=== PATIENT | male | born 1950 | race Caucasian/White ===

== ENCOUNTER 2017-03-27 16:49 | Inpatient (IN) | payer MEDICARE, MEDICAID ==
[~2017-03-27] VITALS: Ht 175.3 cm; Wt 73.5 kg
[~2017-03-27 16:49] MED LIST: ASPI-13 PO; BUSP15TA3 PO; CHOL10002 PO; DEXL60CA5 PO; DIVA250T2 PO; DIVA500T6 PO; GABA600T2 PO; HYDR-4003 PO; KLO1T PO; LEVE500T3 PO; LISI-567 PO; NITR0.4T SL; NORT25CA PO; POLY17PO6 PO; PRAZ1CAP2 PO; PROP10TA8 PO; SIMV40TA5 PO
[2017-03-27 17:01] VITALS: BP 131/76; PULSE 60; O2SAT 95
--- NOTE | 2017-03-27 17:38 | DRSVH ---
PROCEDURE: CT BRAIN WITHOUT CONTRAST ([id number]) INDICATIONS: fall TECHNIQUE: Noncontrast 4.5 mm thick angled axial sections acquired from the foramen magnum to the vertex, with c oronal reformats. COMPARISON: [facility], CT, CT HEAD WO CONTRAST, 12/13/2016, 1:47 PM. FINDINGS: Image quality: Excellent. CSF spaces: Basal cisterns are patent. No extra-axial fluid collections. The ventricles are symmet iman in size and shape. There is ziud-xb-ogtpjitf cerebral volume loss, with resultant ventricular an d sulcal prominence. Brain: No intracranial hemorrhage, mass, or mass effect. There are subcortical, periventricular and deep white matter hypodensities consistent with mild chronic small vessel ischemic changes. There i s intracranial internal carotid artery atherosclerosis. Skull and face: Calvarium and visualized facial bones are intact, without suspicious lesions. Sinuses: Visualized sinuses and mastoids are clear. IMPRESSION: 1. No acute intracranial abnormality. 2. Cajr-im-jxmzwedp cerebral volume loss. Dictated by: Vince Humphries M.D. on 03/27/2017 at 17:30 Approved by: Vince Humphries M.D. on 03/27/2017 at 17:31
--- NOTE | 2017-03-27 17:40 | DRSVH ---
PROCEDURE: CT CERVICAL SPINE WITHOUT CONTRAST ([id number]) INDICATIONS: fall TECHNIQUE: Noncontrast 3 mm thick sections acquired from the skull base to the T4 level. Sagittal and coronal r eformats were then constructed. For radiation dose reduction, the following was used: automated exp osure control, adjustment of mA and/or kV according to patient size. COMPARISON: None. FINDINGS: Image quality: Excellent. Bones: No fractures or dislocations. There is minimal anterolisthesis at C2-C3. Mild multilevel re trolisthesis demonstrated at C3-C4, C4-C5, C5-C6, and C6-C7. There is multilevel rjlx-mj-zvykpsud di sc space narrowing throughout the cervical spine. Multilevel facet arthropathies also demonstrated i n the cervical spine most prominent at C2-C3. Visualized superior ribs are intact. Soft tissues: Prevertebral soft tissues are normal in thickness. No paravertebral hematomas. No ap ical pneumothoraces. IMPRESSION: 1. No fracture or subluxation. 2. Extensive multilevel degenerative changes throughout the cervical spine as described. Mild multi level spondylolisthesis also noted. Dictated by: Vince Humphries M.D. on 03/27/2017 at 17:31 Approved by: Vince Humphries M.D. on 03/27/2017 at 17:33
--- NOTE | 2017-03-27 17:43 | ED.REPORT ---
HPI-Head Prob / Injury Date of Service March 27, 2017 ED Provider: Daniel Treviño MD Patient is a 66 year old male with a history of A-fib s/p pacemaker, hypertension, valvular heart disease, GI Bleed, Hepatitis A, childhood polio, and GERD who presents to the ED via EMS following a GLF that occurred just prior to arrival. Patient currently lives alone with a aircraft loadmaster superintendent for 3 hours daily. He reportedly had a syncopal episode secondary to the fall and hit his head though he frequently changes his story later stating that he passed out and then fell. He states that he felt backwards and struck his head however he has signs of trauma about his forehead. Associated symptoms include weakness and left shoulder pain which seems to be chronic. He denies chest pain, SOB, numbness or tingling. Patient is open to discussing placement at a care facility. He states that he is not able to care for himself at home and seems quite confused. Nursing Notes Stated Complaint: GROUND LEVEL FALL,GENERALIZED WEAKNESS Chief Complaint: General Complaint Nursing Notes Reviewed: Yes Allergies: Coded Allergies: No Known Allergies (Verified , 02/12/16) Scheduled Aspirin/Calcium Carbonate/Mag (Aspirin Buffered) 325 Mg Tablet 325 MG PO DAILY Buspirone (Buspirone) 15 Mg Tablet 15 MG PO DAILY Cholecalciferol (Vitamin D3) 1,000 Unit Tablet 1,000 UNIT PO DAILY Dexlansoprazole ER (Dexilant) 60 Mg Capsule 60 MG PO DAILY Divalproex (Divalproex) 500 Mg Tablet.dr 500 MG PO BID Swallowed whole without chewing to avoid local irritation of the mouth and throat. Divalproex ER (Depakote ER) 250 Mg Tablet 250 MG PO DAILY *DAILY USE ONLY* Swallowed whole without chewing to avoid local irritation of the mouth and throat. Gabapentin (Gabapentin) 600 Mg Tablet 600 MG PO TID Levetiracetam (Levetiracetam) 500 Mg Tablet 1,250 MG PO BID Lisinopril (Lisinopril) 20 Mg Tablet 20 MG PO BID Nortriptyline (Nortriptyline) 25 Mg Capsule 25 MG PO HS Polyethylene Glycol 3350 (Miralax) 17 Gm Powd.pack 17 GM PO DAILY Prazosin (Prazosin) 1 Mg Capsule 1 MG PO HS Propranolol HCl (Propranolol HCl) 10 Mg Tablet 10 MG PO TID Simvastatin (Simvastatin) 40 Mg Tablet 40 MG PO HS Scheduled PRN Clonazepam (Clonazepam) 1 Mg Tab 1 MG PO HS PRN PRN For Anxiety Hydrocodone-Acetaminophen 5-325 mg (Hydrocodone-Acetaminophen 5-325 mg) 1 Each Tablet 1 EACH PO Q4 PRN PRN For Pain Nitroglycerin SL (Nitrostat) 0.4 Mg Tab.subl 0.4 MG SL Q5MIN PRN PRN ANGINA General Time Seen by Provider: 17:47 Chief Complaint Other (GLF) Hx Obtained From: Patient Arrived By: Ambulance Onset Occurred: Just prior to arrival Symptom Duration: Since onset Progression Since Onset: Unchanged Quality: Painful (Left shoulder pain) Severity: Current: Mild Severity: Maximum: Moderate Associated with: Reports: Headache, Denies: Vomiting Pertinent Negative: Pt denies other symptoms Recent Healthcare: No recent doctor visit, No recent hospitalization Risk-Head Prob / Injury )( IC Bleed Risk Strat RF Statements: Risk factors reviewed Past Medical History Past Medical History A-fib Hypertension Valvular heart disease GI Bleed Chronic shoulder pain Hepatitis A Childhood polio GERD Anxiety Depression Bipolar Siezure disorder Hyperlipidemia Lumbar stenosis Hyponatremia DVT Past Surgical History Reports: Pacemaker insertion Smoking History Former Smoker Social History Other Social History: Lives alone (Home Aid) Ambulatory Status Walker Review of Systems Constitutional: Reports: Weakness - generalized Musculoskeletal: Reports: Joint pain (left shoulder ) Neurologic: Reports: Change LOC, Syncope, Weakness Complete sys rev & neg: except as marked. Physical Exam Initial Vital Signs Vital Signs (First) Date Time Temp Pulse Resp B/P Pulse Ox O2 Delivery O2 Flow Rate FiO2 03/27/17 17:01 36.4 60 131/76 95 Room Air 03/27/17 18:52 19 Initial VS: Reviewed Abdomen / GI: Soft, Non-tender, No guarding, No rebound, No distention Extremities: Vascular intact, Neuro intact, No swelling, No tenderness Skin: Warm, Dry, No cyanosis Psychiatric: Mood/affect normal, Behavior normal, Normal thought content General/Constitutional: Awake, Alert Head / Eyes: Atraumatic, Normocephalic, PERRL (pupils 3mm) Trauma - General: Positive: Abrasion (Multiple superficial abrasions to the scalp and face) ENT: Atraumatic, Airway patent Mouth: Positive: Mucous membranes dry Neck: Atraumatic, Supple, No midline vertebral tend Trauma - Neck Specific: Positive: Immobilized - C Collar NECK: No C-spine tenderness No step off's Neurologic: Oriented X3, CN II - XII intact Respiratory / Chest: Atraumatic, Breath sounds NL, Breath sounds = bilat, No respiratory distress Cardiovascular: Heart rate NL, Regular rhythm, Heart sounds NL, No gallop, No murmurs, No rubs, Peripheral circulation NL Upper Extremity / MS: Atraumatic, Inspection NL, Neurologic intact, Vascular intact Lower Extremity / Pelvis / MS: Atraumatic, Vascular intact LOWER EXTREMITIES: Well healed anterior scar to the left knee Significant atrophy to the left leg secondary to childhood polio Back: Atraumatic, Inspection NL, Non-tender Interpretation & Diagnostics Lab Results Interpretation Result Diagram: 03/27/175 03/27/171804 Test 03/27/17 18:05 03/27/17 18:09 White Blood Count 7.7th/mm3 (3.8-10.1) Red Blood Count 4.28mil/mm3 (4.40-5.80) Hemoglobin 13.8g/dL (13.8-17.2) Hematocrit 37.9% (41.0-50.0) Mean Corpuscular Volume 88.6fL (81-100) Mean Corpuscular Hemoglobin 32.2pg (27.0-35.0) Mean Corpuscular Hemoglobin Concent 36.4% (32.0-37.0) Red Cell Distribution Width 11.7% (12.3-15.4) Platelet Count 203bil/L (150-400) Neutrophils (%) (Auto) 69.3% (40-74) Lymphocytes (%) (Auto) 15.0% (14-46) Monocytes (%) (Auto) 15.4% (4-12) Eosinophils (%) (Auto) 0.1% (0-5) Basophils (%) (Auto) 0.1% (0-3) Prothrombin Time 12.7sec (8.1-12.5) Prothromb Time International Ratio 1.18ratio Sodium Level 126mEq/L (134-144) Potassium Level 4.1mEq/L (3.5-5.2) Chloride Level 88mEq/L (97-108) Carbon Dioxide Level 23mmol/L (18-29) Blood Urea Nitrogen 13mg/dL (8-27) Creatinine 0.44mg/dL (0.76-1.27) Estimat Glomerular Filtration Rate 206mL/min (>59) Glucose Level 95mg/dL (60-99) Calcium Level 9.6mg/dL (8.5-10.1) Magnesium Level 2.0mg/dL (1.6-2.6) Total Bilirubin 0.7mg/dL (0.0-1.2) Aspartate Amino Transf (AST/SGOT) 44U/L (0-50) Alanine Aminotransferase (ALT/SGPT) 17U/L (0-44) Alkaline Phosphatase 61U/L (25-160) Troponin T < 0.010ug/L (0.0-0.011) Total Protein 7.5g/dL (6.4-8.4) Albumin 4.0g/dL (3.4-5.0) Osmolality 270 (275-300) ECG Interpretation ECG Interpretation: Atrial paced complexes at 60 bpnm Normal axis Normal intervals No acute ST changes No T wave abnormalities No prior EKG available for comparison Time: 17:38 Interpreted by: ED physician CT Head Interpretation IMPRESSION: 1. No acute intracranial abnormality. 2. Zrbz-js-dogeyaun cerebral volume loss. Dictated by: Vince Humphries M.D. on 03/27/2017 at 17:30 Study: Head CT no contrast Interpretation / Wet Read by: Interpret - Radiologist CT C-Spine Interpretation IMPRESSION: 1. No fracture or subluxation. 2. Extensive multilevel degenerative changes throughout the cervical spine as described. Mild multilevel spondylolisthesis also noted. Dictated by: Vince Humphries M.D. on 03/27/2017 at 17:31 Study type: CT no contrast Interpretation / Wet Read by: Interpret - Radiologist Re-Eval/Medical Decision Med Decision/Clinical Course Patient is a 66 year old male with a history of A-fib s/p pacemaker, hypertension, valvular heart disease, GI Bleed, Hepatitis A, childhood polio, and GERD who presents to the ED via EMS following a GLF that occurred just prior to arrival. Patient currently lives alone with a aircraft loadmaster superintendent for 3 hours daily. He reportedly had a syncopal episode secondary to the fall and hit his head though he frequently changes his story later stating that he passed out and then fell. He states that he felt backwards and struck his head however he has signs of trauma about his forehead. Associated symptoms include weakness and left shoulder pain which seems to be chronic. He denies chest pain, SOB, numbness or tingling. Patient is open to discussing placement at a care facility. He states that he is not able to care for himself at home and seems quite confused. Here in the emergency department the patient is afebrile stable vital signs and examination as above. EKG: Atrial paced complexes at 60 bpm Normal axis Normal intervals No acute ST changes No T wave abnormalities No prior EKG available for comparison C-Spine IMPRESSION: 1. No fracture or subluxation. 2. Extensive multilevel degenerative changes throughout the cervical spine as described. Mild multilevel spondylolisthesis also noted. Brain CT IMPRESSION: 1. No acute intracranial abnormality. 2. Qvbi-xz-ndfjdpsk cerebral volume loss. LABS CBC: no leukocytosis Hct 37.9 INR 1.98 hyponatremia: 126 - Patient's baseline No electrolyte abnormalities Trop negative L shoulder Xray 1. No fracture or dislocation. 2. Moderate glenohumeral joint degeneration and mild acromioclavicular joint degeneration. 3. Suggestion of calcific tendinitis. Patient's history and presentation quite vague. I am unclear whether the patient had a mechanical fall causing him to strike his head and lose consciousness or whether he had a syncopal event leading to the fall. The latter would be more concerning given his cardiac history and the fact that he is paced. That being said, he is quite confused and unable to provide any coherent history. I am concerned furthermore about his ability to care for himself at home as he has been falling, unsteady and he is on Coumadin. He is amenable to placement in a care facility and I feel that he does require admission at this time both for social reasons as well as potential syncope workup. Notably he is subtherapeutic on his Coumadin. Patient discussed with admitting hospitalist and accepted for further workup and management. Transferred in stable condition. Re-Evaluation/Progress : Time of Eval: 19:07 Re-Evaluation/Progress Note: Patient is rechecked. He is informed of his results and diagnosis. All questions are addressed. He understands and agrees with the intended treatment plan. Consultation #1: Referral / Consult Name: Phi Ybarra MD Consulted With: Hospitalist Call Returned at: 19:13 Money Market Clerk: Will see patient, Agrees with eval, Agrees with plan, Accepts admit Consultation #2: Referral / Consult Name: Bebo Faust MD Consulted With: Nephrology Call Returned at: 19:24 Money Market Clerk: Will see patient, Agrees with eval, Agrees with plan Counseled Regarding: Diagnosis, Lab results, Need for admission Discharge & Departure Primary Impression: Fall from ground level Additional Impressions: Head injury Encounter type: initial encounter Qualified Code: S09.90XA - Unspecified injury of head, initial encounter Subtherapeutic international normalized ratio (INR) Anticoagulated on Coumadin Altered mental status Altered mental status type: unspecified Qualified Code: R41.82 - Altered mental status, unspecified History of poliomyelitis Syncopal episodes Syncope type: unspecified Qualified Code: R55 - Syncope and collapse Traumatic hematoma of forehead Encounter type: initial encounter Qualified Code: S00.83XA - Contusion of other part of head, initial encounter Disposition: ADMITTED TO HOSPITAL All VS Reviewed: Yes Condition: Stable Scribe Attestation Portions of this note were transcribed by Cecily Russell. I, Dr. Treviño personally performed the history, physical exam and medical decision-making; I reviewed and confirmed the accuracy of the information in the transcribed note. Signed by: [place], 03/27/171951. Daniel Treviño MD March 27, 2017 17:43 CECILY RUSSELL March 27, 2017 18:19
[2017-03-27 18:10] LABS: BASOPHILS % (AUTO) 0.1 % (0-3); EOSINOPHILS % (AUTO) 0.1 % (0-5); MONOCYTES % (AUTO) 15.4 % (4-12); Mean Corpuscular Hemoglobin 32.2 pg (27.0-35.0); Mean Corpuscular Volume 88.6 fL (81-100); NEUTROPHILS % (AUTO) 69.3 % (40-74); Platelet Count 203 bil/L (150-400)
[2017-03-27 18:27] LABS: INR 1.18 ratio
[2017-03-27 18:44] LABS: TROPONIN T < 0.010 ug/L (0.0-0.011)
[2017-03-27 18:52] VITALS: BP 151/91; PULSE 67; RESP 19; O2SAT 97
[2017-03-27] MEDS ORDERED: Alum-Mag Hydrox-Simeth 30 mL Suspension PO PRN ×2 (19:05→19:30)
[2017-03-27] MEDS ORDERED: Ondansetron 2 mg/mL 2 mL Inj IVPUSH PRN ×2 (19:05→19:30)
[2017-03-27] MEDS ORDERED: 0.9% Sodium Chloride 1,000 ML IV SCH (19:15)
[2017-03-27] MEDS ORDERED: Polyethylene Glycol (PEG) 17 Gm Powder PO PRN (19:30)
--- NOTE | 2017-03-27 20:45 | DRSVH ---
PROCEDURE: X-RAY LEFT SHOULDER, MINIMUM TWO VIEWS ([id number]) INDICATIONS: fall, pain TECHNIQUE: 3 views of the shoulder were acquired. COMPARISON: [facility], CR, XR SHOULDER MIN 2VW LT, 03/12/2017, 11:13. FINDINGS: Bones: No acute fractures or dislocations. No suspicious bony lesions. There is mild acromioclavic ular joint degeneration. There is moderate narrowing of the glenohumeral joint with subchondral scle rosis. Visualized ribs appear intact. Soft tissues: There are several calcifications along the distal rotator cuff compatible with calcifi c tendinitis. Left chest wall pacemaker partially visualized. IMPRESSION: 1. No fracture or dislocation. 2. Moderate glenohumeral joint degeneration and mild acromioclavicular joint degeneration. 3. Suggestion of calcific tendinitis. Dictated by: Vince Humphries M.D. on 03/27/2017 at 20:29 Approved by: Vince Humphries M.D. on 03/27/2017 at 20:44
[2017-03-27 21:16] LABS: APPEARANCE,URINE CLEAR (CLEAR,HAZY); COLOR,URINE YELLOW (YELLOW); OCCULT BLOOD,URINE SMALL (NEGATIVE)
[2017-03-27 21:27] LABS: OSMOLALITY, URINE 346 mOs/kH2O (250-1200)
[2017-03-27 21:35] VITALS: BP 147/85; PULSE 63; RESP 18; O2SAT 98
--- NOTE | 2017-03-27 21:36 | PCM.HPMED ---
Subjective Date of Service March 27, 2017 Primary Provider: Admitting Physician: Primary Care Physician: Low Capps DO Attending Physician: Chief Complaint: Fall from ground level History of Present Illness: Mr. Jamie Roca is a very pleasant 66-year-old gentleman with a complex past medical history including A. 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 He lives alone and his story has fluctuated slightly. He reports that he fell and hit his head on a bolt which made such a loud noise that his neighbor heard and call their other friend and made her way into the house. He also reported that he had no recollection of the events preceding the fall or the fall itself, and per ER notes that he was attempting to stand and fell backwards. He reports chronic left shoulder and left upper quadrant abdominal pain that is reported as 10 out of 10. The patient lives alone and has [facility] to help with medications and he reports compliance with long list of medications. He ambulates with walker and cane. He denies fever, chills, dizziness, change in vision, headache, change in appetite, nausea, vomiting, chest pain, shortness of breath, dysuria, hematochezia, hematemesis, hematuria, change in stool habits. In the emergency department on admission patient's temperature is 36.4, pulse 60 , respiratory rate 19, blood pressure 131/76, 95% on room air. White count 7.7, RBCs 4.28, hemoglobin 13.8, RDW 11.7, platelets 203, neutrophils 69.3, lymphs 15.0 monocytes 15.4, sodium 126, potassium 4.1, chloride 88, CO2 23, BUN/creatinine 13, creatinine 0.44 (with baseline declining since 2009 at 0.9 to 0.6 to present). Glucose 95, calcium 9.6, mag 2.0, AST ALT 44/17, alkaline phosphatase 66, troponin negative, albumin 4.0. PT /INR 12.7/1.18. On CT head and neck negative for acute processes. Shoulder x-ray without fractures. Review of Systems: A comprehensive review of systems was conducted with the patient and found to be negative except as above in the History of Present Illness. Allergies Coded Allergies: No Known Allergies (Verified , 02/12/16) Home Medications Per ER Aspirin/Calcium Carbonate/Mag (Aspirin Buffered) 325 Mg Tablet 325 MG PO DAILY Buspirone (Buspirone) 15 Mg Tablet 15 MG PO DAILY Cholecalciferol (Vitamin D3) 1,000 Unit Tablet 1,000 UNIT PO DAILY Dexlansoprazole ER (Dexilant) 60 Mg Capsule 60 MG PO DAILY Divalproex (Divalproex) 500 Mg Tablet.dr 500 MG PO BID Swallowed whole without chewing to avoid local irritation of the mouth and throat. Divalproex ER (Depakote ER) 250 Mg Tablet 250 MG PO DAILY *DAILY USE ONLY* Swallowed whole without chewing to avoid local irritation of the mouth and throat. Gabapentin (Gabapentin) 600 Mg Tablet 600 MG PO TID Levetiracetam (Levetiracetam) 500 Mg Tablet 1,250 MG PO BID Lisinop lead to serious ril (Lisinopril) 20 Mg Tablet 20 MG PO BID Nortriptyline (Nortriptyline) 25 Mg Capsule 25 MG PO HS Polyethylene Glycol 3350 (Miralax) 17 Gm Powd.pack 17 GM PO DAILY Prazosin (Prazosin) 1 Mg Capsule 1 MG PO HS Propranolol HCl (Propranolol HCl) 10 Mg Tablet 10 MG PO TID Simvastatin (Simvastatin) 40 Mg Tablet 40 MG PO HS According to outpatient records: Acetaminophen 500 every 6 as needed Aspirin 325 daily Atenolol 50 milligrams daily Buspirone HCL oral tablet 15 mg twice a day for depression Clonazepam 2 mg at night Divalproex ER 500 mg twice a day S-Citalopram oxalate 20 mg once a day Gabapentin 300 mg 3 times a day Hydroxyzine 25 mg twice a day Keppra 500 mg 3 tabs in the morning and 2 tabs at night Lisinopril 20 mg twice a day Nitrostat 0.4 mg as needed every 5 minutes for 3 doses for chest pain Omeprazole 20 mg ER once a day Oxycodone 10 mg every 6 hours for severe pain MiraLAX and ducolax Prazosin 1 mg twice a day Simvastatin 40 mg once a day Warfarin 1 mg 3 times every day PMH A-fib on chronic anticoagulation, Pacer Hypertension Valvular heart disease GI Bleed Chronic shoulder pain Hepatitis A Childhood polio with left sided weakness GERD Anxiety Depression Bipolar Siezure disorder Hyperlipidemia Lumbar stenosis Hyponatremia DVT Surgical History Reports: Pacemaker insertion Reports numerous surgeries, too numerous to list at this time. I am reviewing outpatient records. Family History Patient does not know. 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 External ears without defect. Pupils equal, round, and reactive to light and accommodation. Anicteric sclerae, moist conjunctivae, and no lid lag. Oropharynx free of erythema and cobble stoning with moist mucosa. Neck: Supple with full range of motion. No jugular venous distension. No bruits. No lymphadenopathy or thyromegaly. Cardiovascular: Regular rate and rhythm with no murmurs, rubs, or gallops appreciated Pulmonary: Clear to auscultation bilaterally with no crackles, wheezes, or rhonchi. Normal respiratory effort with no use of accessory muscles. Abdomen: Bowel tones present. Soft, nontender, nondistended. No hepatosplenomegaly or masses appreciated. Extremities: No clubbing, cyanosis, edema, or lymphadenopathy appreciated. Skin: Normal temperature, turgor, and texture; no rash, ulcers, or subcutaneous nodules appreciated. Neurological: Cranial nerves grossly intact. Normal muscle strength, tone, and bulk. Reflexes, coordination, and sensory function within normal limits. No known gait impairment. Psychiatric: Normal mood and affect. Alert and oriented to person, place, and time. Lab and Diagnostics Result Diagram: 03/27/17180403/27/171804 X-Rays, CTs and MRIs CT BRAIN WITHOUT CONTRAST IMPRESSION: 1. No acute intracranial abnormality. 2. Dqsk-ol-vgnqvrwy cerebral volume loss. Dictated by: Vince Humphries M.D. on 03/27/2017 at 17:30 CT CERVICAL SPINE WITHOUT CONTRAST IMPRESSION: 1. No fracture or subluxation. 2. Extensive multilevel degenerative changes throughout the cervical spine as described. Mild multilevel spondylolisthesis also noted. Dictated by: Vince Humphries M.D. on 03/27/2017 at 17:31 X-RAY LEFT SHOULDER, MINIMUM TWO VIEWS IMPRESSION: 1. No fracture or dislocation. 2. Moderate glenohumeral joint degeneration and mild acromioclavicular joint degeneration. 3. Suggestion of calcific tendinitis. Dictated by: Vince Humphries M.D. on 03/27/2017 at 20:29 Assessment & Plan Mr. Jamie Roca is a very pleasant 66-year-old gentleman with a complex past medical history including A. 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 He lives alone and his story has fluctuated slightly. He reports that he fell and hit his head on a bolt which made such a loud noise that his neighbor heard and call their other friend and made her way into the house. He also reported that he had no recollection of the events preceding the fall or the fall itself, and per ER notes that he was attempting to stand and fell backwards. He reports chronic left shoulder and left upper quadrant abdominal pain that is reported as 10 out of 10. The patient lives alone and has [facility] to help with medications and he reports compliance with long list of medications. He ambulates with walker and cane. He denies fever, chills, dizziness, change in vision, headache, change in appetite, nausea, vomiting, chest pain, shortness of breath, dysuria, hematochezia, hematemesis, hematuria, change in stool habits. 1. Ground-level fall, present on admission. Active. - Differential diagnosis includes : Neurologic versus cardiogenic syncope. Recurrent medically refractory generalized seizure disorder, Patient lives alone has many medications and is suffering from effects of childhood polio with severe left-sided weakness and debility. He has previous falls at home, sick sinus syndrome with biventricular pacemaker in place and on chronic warfarin. - Orthostatic blood pressures ordered. - CT head and C-spine negative. - Consider pacemaker interrogation tomorrow. Device is a dual-chamber [employer] model 2210, serial [id number] implanted 11/22/2009. Last pacemaker check was , with normal findings and 5.1-6.5 year battery life. - UA with reflex ordered, UA osmolality ordered. - EKG with paced rhythm. - Physical therapy consult ordered. 2. SIADH, present on admission. Active. - Serum sodium 126, Serum osmolality 270, urine sodium 70, urine osmolality 346 , - Continue fluid restriction and 10- 15 mL/kg per day = ~740 - 1111 ml per day. - Avoid sodium correction of greater than 4-6/L within the first 3 hours and no greater than 6 mEq per liter per day. - Nephrology following, recommendations greatly appreciated. 3. Hypertension, not present on admission. Active. - Blood pressure admission 131/76 currently 151/91. - We will restart appropriate home medications after orthostatic blood pressures confirmed. 4. Subtherapeutic INR, on chronic warfarin, present admission. Active. - INR 1.12 on admission. Goal between 2 and 3. - Restart home warfarin. 5. Seizure disorder, medically refractory partial complex and generalized seizure disorder, present on admission. Stable. - Home medications include divalproex ER 500 mg twice a day, Keppra 500 mg 3 tablets in the morning 2 tablets at night. - Patient was seen with Dr. Peter Lang with neurology as recent as 2016, however they will be taking medical leave from practice and have suggested follow-up with Dr. wolfe, but patient prefers and Leander Mariano. 6. Chronic ischemic heart disease, present on admission. Stable. - N STEMI in 2007 with 3 bare metal stents placed to high-grade left circumflex lesion, moderate disease of left anterior descending and right coronary arteries as well. - Continue home aspirin. - Lipid panel ordered. 7. Acute on chronic Hyponatremia, present on admission. Active. - 2nd to SIADH. - Sodium on admission 127. - We will order urine sodium with repeat metabolic panel. - Fluid restriction as above. - Gen. diet. 8. Chronic GERD, present on admission. Stable. - Continue home omeprazole- 9. Chronic Depression, present on admission. Active. - Home medications include buspirone, Escitalopram 10. SSS with dual-chamber pacemaker, present on admission. Active. - Continue home aspirin 325 daily. - Plan to interrogate pacemaker. - Continue home atenolol 50 mg daily. 11. Hyperlipidemia, present on admission. Active. - Lipid panel ordered. - Continue home simvastatin 40 mg daily. 12. Insomnia, unspecified type and chronicity, present on admission. Active. - Home medications include hydroxyzine. 13. Anxiety, unspecified type and chronicity, present on admission. Active. - Continue home prazosin 1 mg twice a day. - Clonazepam 2 mg at night. Social: Patient lives alone at home has had multiple unexplained falls. Patient is on many medications and has [facility]. Social work consult ordered. : Nutrition consult ordered. Acetaminophen for mild pain when necessary. Bowel regimen Senna and MiraLAX scheduled and PRN. Zofran when necessary for nausea and vomiting. SubQ heparin held for now. SCDs in place. High-risk medications: Warfarin Disposition: Patient admitted under observation status. Discharge depended upon social placement and etiology of syncope. Consider discharge with higher level of care and currently receiving. Pain Evaluation: Pain not Controlled Resuscitation Status: CPR: Attempt Resuscitation Attending Statement The patient was seen and examined together with Dr. Vallecillo on 03/27 and I agree with the history, exam and plan as outlined in the note above. ABA VALLECILLO DO March 27, 2017 20:23 Phi Ybarra MD March 28, 2017 04:08
--- NOTE | 2017-03-27 23:10 | NUR ---
Admit admitted pt from ED to [facility] room 3021. Denies chest pain, sob, n/v or abd discomfort. Reports of shoulder pain 08/19. MD ordered Oxycodone PRN for pain control, upon evaluation pt reports "pain calming down". Will continue to monitor.
[2017-03-28] VITALS (9 sets, daily range): BP systolic 124–147; BP diastolic 74–85; PULSE 60–70; RESP 18; O2SAT 94–96
--- NOTE | 2017-03-28 05:02 | NUR ---
NOC Activity Admitted pt due to ground level fall. Pt reports of left shoulder pain, pain has been controlled by oxycodone. Unable to get proper Ortho VS due to pt unable to properly stand. Hourly rounding in effect.
[2017-03-28 06:49] LABS: BASOPHILS % (AUTO) 0 % (0-3); EOSINOPHILS % (AUTO) 0.5 % (0-5); Mean Corpuscular Volume 89.6 fL (81-100); Platelet Count 203 bil/L (150-400)
[2017-03-28] MEDS ORDERED: CALCIUM CARBONATE PO SCH (08:30)
[2017-03-28] MEDS ORDERED: ASPIRIN PO SCH (08:30)
[2017-03-28] MEDS ORDERED: MAG PO SCH (08:30)
[2017-03-28] MEDS: BusPIRone 15 mg Dividose Tablet PO SCH (08:57)
[2017-03-28] MEDS: levETIRAcetam 500 mg Tablet PO SCH ×2 (08:57→21:30)
--- NOTE | 2017-03-28 11:15 | NUR ---
Social Work: Initial Assessment Late Entry from 03/28 Data & Assessment: See Initial Assessment. EMR reviewed. Patient s a 66 y/o male that admitted on 03/27/17 for syncope per H&P. SW met with patient at bedside to complete initial assessment, SW role reviewed and discharge planning complete. Patient alert and oriented x3. SW also spoke with patient's sister, Loulou Roca [phone], and SW role reviewed and discharge planning discussed. Patient's insurance is Medicare and [facility]. Patient PCP s Dr. Low Campbell. Patient does not have any VA or LTC insurance. Patient's reamit score is 4 high-risk. patient reports that he has an Advance Directive/DPOA SW requested a copy. Patient lives home alone in a two story home with no steps to enter and 13 steps on the inside. Patient does not drive. Patient has a walker and cane and reports using a cane at baseline. patient currently has [facility] and has history at [facility]. Patient has RICK and 47 hours. SW will fax patient's H&P to [facility] worker. Patient has a PT evaluation pending. SW will continue to follow patient for discharge planning needs. SW wrote contact information on patients white board. SW will continue to follow and assist patient throughout stay. Plan: SW will continue to follow patient and assist with discharge planning needs. Mya Clifford LMSW, VAHID Addendum: 03/29/17 at 0751 by MYA CLIFFORD SS Amended: Links added.
--- NOTE | 2017-03-28 12:14 | NUR ---
Evaluation completed. Please go to "Notes" then click on "Assessments and Notes" (bottom left corner of screen). Then select appropriate discipline tab on top of screen.
--- NOTE | 2017-03-28 13:50 | NUR ---
CHEYANNE explained and signed. Copy of CHEYANNE and Medicare self administered medication information given to pt.
[2017-03-28] MEDS ORDERED: ESCI10TA52 PO (15:02)
[2017-03-28] MEDS ORDERED: DIVA500T14 PO ×2 (15:02)
[2017-03-28] MEDS ORDERED: ATEN50TA PO (15:02)
[2017-03-28] MEDS ORDERED: WARF5TAB7 PO (15:08)
[2017-03-28] MEDS ORDERED: OMEP20CA11 PO (15:08)
[2017-03-28] MEDS ORDERED: WARF1TAB6 PO ×2 (15:08→15:37)
--- NOTE | 2017-03-28 15:26 | DRSVH ---
[facility] [address] [place] [address] Echocardiogram Report Name: MANINDER DYER LStudy Date: Height: 69 in Hospital Exam Location: [facility] Weight: 164 lb Gender: Male BSA: 1.9 m2 : 1950 Age: 66 yrs BP: 128/82 mmHg Reason For Study: FALL, SYNCOPE Ordering Physician: HOSPITALIST SVHPerformed By: Michael Oliveira Referring Physician: BINTA URIBE Interpretation Summary 1) Normal left ventricular thickness, size, wall motion, and systolic function (EF 60-65%). 2) Normal right ventricular size and function. There is a pacemaker lead in the right ventricle. 3) Grade 2 diastolic dysfunction (pseudonormalization) pattern, consistent with elevated filling pressures. 4) Age related calcification of the arotic and mitral valves but no significant stenosis or regurgitation are present. 5) Mildly enlargement of the ascending aorta (diameter 3.9cm). 6) Normal pulmonary artery pressures. 7) Compared to the Echo done 11/09/2009, no significant change when compared visually Procedure: A two-dimensional transthoracic echocardiogram with color flow and Doppler was performed. The study quality was technically adequate. Comparison is made with the echocardiogram of 11/09/09. The patient was in normal sinus rhythm during the exam. Left Ventricle: The left ventricle is normal in size, wall thickness, and systolic function without any focal wall motion abnormalities. The ejection fraction is estimated to be 60-65%. Left ventricular wall motion is normal. Assessment of diastolic parameters suggests a pseudonormalization pattern, consistent with elevated filling pressures. Right Ventricle: The right ventricle grossly appears normal in size with probable normal systolic function. There is a pacemaker lead in the right ventricle. Atria: The left atrial size is normal. Right atrial size is normal. The interatrial septum is intact with no evidence for an atrial septal defect. Mitral Valve: The mitral valve leaflets are mildly calcified. There is mild mitral annular calcification. There is trace mitral regurgitation. Aortic Valve: The aortic valve is trileaflet. The aortic valve is mildly calcified. There is no aortic valve stenosis. There is mild aortic regurgitation. Tricuspid Valve: The tricuspid valve is normal. There is mild tricuspid regurgitation. The right ventricular systolic pressure is estimated at 29 mmHg assuming a right atrial pressure of 3 mm Hg. Pulmonic Valve: The pulmonic valve is normal in structure and function. There is trace pulmonic regurgitation. Great Vessels: The aortic root is normal size. The ascending aorta is mildly enlarged. The pulmonary artery is normal size. The IVC is of normal diameter and collapses greater than 50% with a sniff. This suggests a low right atrial pressure of 3 mm Hg. Pericardium/ Pleura There is no pericardial effusion. There is no pleural effusion. MMode/2D Measurements & Calculations LVIDd: 4.7 cm RA long axis LVOT diam: 1.9 cm LVIDs: 2.9 cm LA A2 area: 14.7 cm AoV Opening FS: 38.8 % LA A4 area: 17.9 cm RA area EPSS: 0.35 cm LA length (vol) Ao root diam IVSd: 0.88 cm : 15.7 cm LVPWd: 0.81 cm LA vol: 44.6 ml RA vol asc Aorta Diam LA vol index : 41.7 ml RA Ao Arch Diam (Prox : 23.5 ml/m2 : 22.0 mm2 Trans): 2.7 cm LV marion. diameter/BSA LV sys. diameter/BSA (cm/m^2): 2.5 (cm/m^2): 1.5 Doppler Measurements & Calculations Ao V2 max MV E max claudio MV E/A: 1.2 TR max claudio : 139.5 cm/sec : 104.6 cm/sec Med Peak E' Claudio : 256.6 cm/sec Ao max P.8 mmHg MV A max claudio TR max PG Ao mean P.6 mmHg : 85.8 cm/sec E/E' med: 19.5 : 26.3 mmHg LVOT Max Claudio Lat Peak E' Claudio PA V2 max : 117.7 cm/sec : 60.8 cm/sec E/E' lat: 13.6 PA mean PG AMBROSIO(I,D): 2.7 cm E/e' average : 0.95 mmHg sev ratio: 0.95 MV dec time: 0.18 sec Ao V2 mean LV V1 max PG PA V2 mean : 88.5 cm/sec : 46.8 cm/sec Ao V2 VTI: 29.4 cmLV V1 VTI PA pr(Accel) : 27.9 cm : 4.3 mmHg AMBROSIO(V,D): 2.4 cm2 AMBROSIO indexed to BSA (cm^2/m^2): 1.4 Reading Physician:03:25 PM
[2017-03-28] MEDS ORDERED: KLO2T PO (15:28)
[2017-03-28] MEDS ORDERED: ASPI325T32 PO (15:28)
[2017-03-28] MEDS ORDERED: ACET-171 PO (15:28)
[2017-03-28] MEDS ORDERED: GABA-502 PO (15:31)
[2017-03-28] MEDS ORDERED: BISA10SU61 RC (15:31)
[2017-03-28] MEDS ORDERED: KEP500TA PO (15:33)
[2017-03-28] MEDS ORDERED: HYDR-3797 PO (15:33)
[2017-03-28] MEDS ORDERED: CHOL10008 PO (15:36)
[2017-03-28] MEDS ORDERED: OXYC10TA8 PO (15:37)
--- NOTE | 2017-03-28 18:44 | NUR ---
Discharge Reviewed discharge paperwork, care notes and medications with pt - disclaimer signed. IV DCd intact, tele removed, all belongings with pt. Pt reports minimal groin pain - baseline, and minimal SOB. Pt escorted breeide in WC, driving home. Addendum: 03/28/17 at 1846 by VIMAL ARZATE RN WRONG PATIENT - DISREGARD
--- NOTE | 2017-03-28 18:46 | NUR ---
WRONG PT - Disregard DISCHARGE
--- NOTE | 2017-03-28 19:39 | NUR ---
Pain/Ambulation Pt reports strong pain of 10/10 pain in R and L shoulder and head. Pt winces with movement and very cautious about movement. Pt given PRN Oxycodone for pain relief. Reports pain decreases to 6/10. MD informed about pain control and in to assess further. Pt 1P assist by PT as pt had syncopal episode at home, seizures, and recent GLF. Seizure pads in place, rishabh alarm on, and frequent rounding to meet needs. Pt instructed on importance of safety and educated about fall risk. Pt compliant with no near falls during shift.
--- NOTE | 2017-03-28 22:01 | CONS ---
[address] [address] CONSULTATION REPORT PATIENT: MANINDER DYER : 1950 MR#: [id number] ADMIT: 03/27/2017 JOB ID: [id number] DATE OF SERVICE: 03/28/2017 REQUESTING PHYSICIAN: Dr. Gonzalez. REASON FOR CONSULTATION: Management of hyponatremia. CHIEF COMPLAINT: Status post fall. PRESENT ILLNESS: This is a pleasant, 66-year-old, male with multiple past medical history including history of polio, ischemic heart disease status post angioplasty and bare-metal stent placement in 2007, sick sinus syndrome, status post pacemaker placement, hypertension, atrial fibrillation, seizure disorder, chronic hyponatremia, who presented to the emergency department after the episode of ground level fall. During my visit, the patient seems to be slowly responsive. HE reported that he had an episode of fall. He is not able to recall the preceding event. He stated that he was brought to the emergency department by the ambulance. Per ED note, he stated that he fell backwards and struck his head. He pointed that the pain was on the back of the head. However, he also had a lesion on the forehead as well. He also mentioned to me that his seizures have not been well controlled. Per renal perspective, we were consulted to manage chronic hyponatremia. According to the outpatient record, the patient has had chronic hyponatremia. His serum sodium has ranged between 127-132 since April 2016. The initial BMP showed a sodium of 126. Overnight, the patient was started on fluid restriction and salt tab was started. His current serum sodium is 130. The patient reports no nausea, vomiting, no diarrhea. No dysuria. No hematuria. No headache. No blurry vision. PAST MEDICAL HISTORY: 1. Chronic hyponatremia. 2. Hypertension. 3. Atrial fibrillation and sick sinus syndrome, status post pacemaker placement. 4. Coronary artery disease, status post stent placement. 5. Childhood polio. 6. Anxiety and depression. 7. Seizure disorder. 8. Lumbar stenosis. 9. DVT. PAST SURGICAL HISTORY: 1. Status post pacemaker placement. 2. Status post cardiac stenting. SOCIAL HISTORY: The patient lives alone. He has a caregiver who visits him 3 hours a day. He is a former smoker. Denies current use of alcohol, tobacco, illicit drugs. FAMILY HISTORY: Noncontributory. ALLERGIES: No known drug allergies. MEDICATIONS: 1. Tylenol. 2. Aspirin. 3. Atenolol. 4. Buspirone. 5. Clonazepam. 6. Citalopram. 7. Depakote. 8. Divalproex. 9. Gabapentin. 10. Levetiracetam. 11. Lisinopril. 12. Nitrostat. 13. Omeprazole. 14. Oxycodone. 15. MiraLAX. 16. Prazosin. 17. Simvastatin. 18. Warfarin. REVIEW OF SYSTEMS: A 14-point review of system was performed. PHYSICAL EXAMINATION: Vitals: Temperature 36.9, pulse 61, respiratory rate 18, blood pressure 132/81, O2 sat 96% on room air. General appearance: Awake, alert, oriented x3. In no acute distress. HEENT: No pallor. No jaundice, no JVD. No lymphadenopathy. No thyroid enlargement. PERRLA. Heart: Regular rate and rhythm. Normal S1, S2. No murmurs, rubs, or gallops. Lungs: Clear to auscultation bilaterally. No wheezing. No rhonchi. Abdomen soft, active bowel sounds. Nontender. Nondistended. No hepatosplenomegaly. Extremities: No edema, cyanosis or clubbing of fingers. Skin: A small scratch on the left forehead measured 2 cm. No bruises. LABORATORY: Sodium 130, potassium 4.1, chloride 95, bicarb 21, BUN 13, creatinine 0.43. Serum osmo 270. UA: Urine sodium 71, urine osmolality 346. INR 1.18. Hemoglobin 12.3, WBC 5.8. ASSESSMENT: 1. Chronic hyponatremia, likely due to SIADH. Etiology of SIADH could be related to SSRI, chronic pain and narcotics. 2. Ground level fall secondary to multifactorial, including deconditioning, instability, need to rule out syncope. 3. Seizure disorder. 4. Coronary artery disease status post bare-metal stent placement. 5. Atrial fibrillation, sick sinus syndrome, status post pacemaker placement. 6. Childhood polio. PLAN: From renal standpoint, I will put patient on fluid restriction 1 L per day. Will continue salt tablets 2 g twice a day. We repeat serum sodium tomorrow. If improves will change fluid restriction to 1.5 L a day. Thank you for allowing me to participate in the care of your patient. We will monitor along with you.
[2017-03-29] VITALS (8 sets, daily range): BP systolic 128–159; BP diastolic 75–93; PULSE 61–72; RESP 18–20; O2SAT 91–97
--- NOTE | 2017-03-29 00:02 | PCM.PNMED ---
Subjective Date of Service March 28, 2017 Subjective Patient is seen and examined. He complains of his fall on his back and pain in his shoulder and arm on the left side. It does not quite acutely appear to be all acute event , he is crying sometimes saying it hurts. I am not sure of his baseline mental status. He seems to indicate that one of his legs as well as the left arm have been weak all along because of his polio. He also complains of having a second seizure a month ago he is on no medications for seizure disorder, unclear what he is talking about ( Exam Vital Signs Vital Sign - Last Date Time Temp Pulse Resp B/P Pulse Ox O2 Delivery O2 Flow Rate FiO2 03/28/17 06:28 63 03/28/17 04:56 128/82 03/28/17 04:55 36.4 18 96 Room Air Intake and Output 03/27/17 03/27/17 03/28/17 Cumulative From/Thru 15:00 23:00 07:00 03/27/17 17:01 - 03/28/17 06:53 Intake Total 1000 ml 750 ml 1750 ml Balance 1000 ml 750 ml 1750 ml Intake Oral 300 ml 300 ml IV Total 1000 ml 1000 ml TPN/PPN 450 ml 450 ml Exam General: Mildly distressed. HEENT: Normocephalic, atraumatic. External ears without defect. Pupils equal, round, and reactive to light and accommodation. Anicteric sclerae, moist conjunctivae, and no lid lag. Neck: Supple with full range of motion. No jugular venous distension. No bruits. No lymphadenopathy or thyromegaly. Cardiovascular: Regular rate and rhythm with no murmurs, rubs, or gallops appreciated Pulmonary: Clear to auscultation bilaterally with no crackles, wheezes, or rhonchi. Normal respiratory effort with no use of accessory muscles. Abdomen: Bowel tones present. Soft, nontender, nondistended. No hepatosplenomegaly or masses appreciated. Extremities: No clubbing, cyanosis, edema, or lymphadenopathy appreciated. MSK: Weaker right upper extremity and right lower extremity. Both LE 4/ 5 strength Skin: Normal temperature, turgor, and texture; slight bruising over the face ( he says he fell on his back?) Psychiatric: Appears to be crying almost like a child at times IVs and Medications IV Fluids None Medications Reviewed: Medications were reviewed in detail Lab and Diagnostics Laboratory Tests 72 Hours Test 03/27/17 18:05 03/27/17 18:09 03/27/17 20:57 03/28/17 04:50 White Blood Count 7.7th/mm3 (3.8-10.1) Red Blood Count 4.28mil/mm3 (4.40-5.80) Hemoglobin 13.8g/dL (13.8-17.2) Hematocrit 37.9% (41.0-50.0) Mean Corpuscular Volume 88.6fL (81-100) Mean Corpuscular Hemoglobin 32.2pg (27.0-35.0) Mean Corpuscular Hemoglobin Concent 36.4% (32.0-37.0) Red Cell Distribution Width 11.7% (12.3-15.4) Platelet Count 203bil/L (150-400) Neutrophils (%) (Auto) 69.3% (40-74) Lymphocytes (%) (Auto) 15.0% (14-46) Monocytes (%) (Auto) 15.4% (4-12) Eosinophils (%) (Auto) 0.1% (0-5) Basophils (%) (Auto) 0.1% (0-3) Prothrombin Time 12.7sec (8.1-12.5) Prothromb Time International Ratio 1.18ratio Sodium Level 126mEq/L (134-144) Potassium Level 4.1mEq/L (3.5-5.2) Chloride Level 88mEq/L (97-108) Carbon Dioxide Level 23mmol/L (18-29) Blood Urea Nitrogen 13mg/dL (8-27) Creatinine 0.44mg/dL (0.76-1.27) Estimat Glomerular Filtration Rate 206mL/min (>59) Glucose Level 95mg/dL (60-99) Calcium Level 9.6mg/dL (8.5-10.1) Magnesium Level 2.0mg/dL (1.6-2.6) Total Bilirubin 0.7mg/dL (0.0-1.2) Aspartate Amino Transf (AST/SGOT) 44U/L (0-50) Alanine Aminotransferase (ALT/SGPT) 17U/L (0-44) Alkaline Phosphatase 61U/L (25-160) Troponin T < 0.010ug/L (0.0-0.011) Total Protein 7.5g/dL (6.4-8.4) Albumin 4.0g/dL (3.4-5.0) Triglycerides Level 53mg/dL (0-149) Cholesterol Level 168mg/dL (100-199) LDL Cholesterol, Calculated 86.400mg/dL (0-99) VLDL Cholesterol 10.600mg/dL HDL Cholesterol 71mg/dL (>39) Cholesterol/HDL Ratio 2.37 (0.0-4.4) Osmolality 270 (275-300) Urine Color Yellow (YELLOW) Urine Appearance Clear (CLEAR,HAZY) Urine pH 7.0 (5.0-8.0) Urine Specific Greene 1.020 (1.003-1.035) Urine Protein Negativemg/dL (NEG,TRACE) Urine Glucose (UA) Negativemg/dL (NEGATIVE) Urine Ketones Tracemg/dL (NEGATIVE) Urine Occult Blood Small (NEGATIVE) Urine Nitrite Negative (NEGATIVE) Urine Bilirubin Negative (NEGATIVE) Urine Urobilinogen 2.0mg/dL (NORMAL) Urine Leukocyte Esterase Negative (NEGATIVE) Urine RBC 0-2/hpf (0-2) Urine WBC 0-5/hpf (0-5) Urine Epithelial Cells Few/hpf (NONE-MOD) Urine Crystals None seen (NONE SEEN) Urine Bacteria Few/hpf (NONE-FEW) Urine Hyaline Casts None/lpf (NONE) Urine Granular Casts None seen (NONE SEEN) Urine Waxy Casts None seen (NONE SEEN) Urine Red Blood Cell Casts None seen (NONE SEEN) Urine White Blood Cell Casts None seen (NONE SEEN) Urine Mucus None seen (None Seen) Urine Trichomonas None seen (NONE SEEN) Urine Yeast None (NONE SEEN) Urinalysis Comment None Urine Culture Reflexed Not indicated Urine Osmolality 346mOs/kH2O (250-1200) Urine Random Sodium 71mEq/L Hold Urine Received (Received) Test 03/28/17 05:55 03/28/17 20:12 White Blood Count 5.8th/mm3 (3.8-10.1) Red Blood Count 3.84mil/mm3 (4.40-5.80) Hemoglobin 12.3g/dL (13.8-17.2) Hematocrit 34.4% (41.0-50.0) Mean Corpuscular Volume 89.6fL (81-100) Mean Corpuscular Hemoglobin 32.0pg (27.0-35.0) Mean Corpuscular Hemoglobin Concent 35.8% (32.0-37.0) Red Cell Distribution Width 11.9% (12.3-15.4) Platelet Count 203bil/L (150-400) Neutrophils (%) (Auto) 62.0% (40-74) Lymphocytes (%) (Auto) 21.3% (14-46) Monocytes (%) (Auto) 16.0% (4-12) Eosinophils (%) (Auto) 0.5% (0-5) Basophils (%) (Auto) 0% (0-3) Sodium Level 130mEq/L (134-144) 133mEq/L (134-144) Potassium Level 4.1mEq/L (3.5-5.2) Chloride Level 95mEq/L (97-108) Carbon Dioxide Level 21mmol/L (18-29) Blood Urea Nitrogen 13mg/dL (8-27) Creatinine 0.43mg/dL (0.76-1.27) Estimat Glomerular Filtration Rate 212mL/min (>59) Glucose Level 114mg/dL (60-99) Uric Acid 3.7mg/dL (2.6-7.2) Calcium Level 8.8mg/dL (8.5-10.1) Total Bilirubin 0.5mg/dL (0.0-1.2) Aspartate Amino Transf (AST/SGOT) 35U/L (0-50) Alanine Aminotransferase (ALT/SGPT) 15U/L (0-44) Alkaline Phosphatase 54U/L (25-160) Total Protein 6.1g/dL (6.4-8.4) Albumin 3.5g/dL (3.4-5.0) Result Diagram: 03/28/17 0555 03/27/17 5788 X-Rays, CTs and MRIs CT BRAIN WITHOUT CONTRAST IMPRESSION: 1. No acute intracranial abnormality. 2. Aqlu-[id number]-lvohkcny cerebral volume loss. Dictated by: Vince Humphries M.D. on 03/27/2017 at 17:30 CT CERVICAL SPINE WITHOUT CONTRAST IMPRESSION: 1. No fracture or subluxation. 2. Extensive multilevel degenerative changes throughout the cervical spine as described. Mild multilevel spondylolisthesis also noted. Dictated by: Vince Humphries M.D. on 03/27/2017 at 17:31 X-RAY LEFT SHOULDER, MINIMUM TWO VIEWS IMPRESSION: 1. No fracture or dislocation. 2. Moderate glenohumeral joint degeneration and mild acromioclavicular joint degeneration. 3. Suggestion of calcific tendinitis. Dictated by: Vince Humphries M.D. on 03/27/2017 at 20:29 Assessment & Plan Mr. Jamie Roca is a very pleasant 66-year-old gentleman with a complex past medical history including A. 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 He lives alone and his story has fluctuated slightly. He reports that he fell and hit his head on a bolt which made such a loud noise that his neighbor heard and call their other friend and made her way into the house. He also reported that he had no recollection of the events preceding the fall or the fall itself, and per ER notes that he was attempting to stand and fell backwards. He reports chronic left shoulder and left upper quadrant abdominal pain that is reported as 10 out of 10. The patient lives alone and has [facility] to help with medications and he reports compliance with long list of medications. He ambulates with walker and cane. He denies fever, chills, dizziness, change in vision, headache, change in appetite, nausea, vomiting, chest pain, shortness of breath, dysuria, hematochezia, hematemesis, hematuria, change in stool habits. 1. Syncope or AMS, GLF - Differential diagnosis includes : Neurologic versus cardiogenic syncope. Recurrent medically refractory generalized seizure disorder, Patient lives alone has many medications and is suffering from effects of childhood polio with severe left-sided weakness and debility. He has previous falls at home, sick sinus syndrome with biventricular pacemaker in place and on chronic warfarin. - Orthostatic blood pressures ordered. - CT head and C-spine negative. - Consider pacemaker interrogation tomorrow. Device is a dual-chamber [employer] model 2210, serial [id number] implanted 11/22/2009. Last pacemaker check was , with normal findings and 5.1-6.5 year battery life: We will investigate this on 03/29 - UA with reflex ordered, UA osmolality ordered. : UA is negative, urine osmolarity being followed by decator operator - EKG with paced rhythm. - Physical therapy consult ordered. -- Initially his pain medications are decreased but he is distressed all day regarding this. States that pain meds are for his preoperative polio-related pain, will reinstate oxycodone 10 mg every 4 hours when necessary. Added Flexeril and Lidoderm patch -- will restart his home pain meds 2. SIADH, present on admission. Active. - Serum sodium 126, Serum osmolality 270, urine sodium 70, urine osmolality 346 , - Continue fluid restriction and 10- 15 mL/kg per day = ~740 - 1111 ml per day. - Avoid sodium correction of greater than 4-6/L within the first 3 hours and no greater than 6 mEq per liter per day. - Nephrology following, recommendations greatly appreciated. 3. Hypertension, not present on admission. Active. - Blood pressure admission 131/76 currently 151/91. -Orthostatics: Negative for orthostatic hypotension -- Hold home medication lisinopril his blood pressures are not that great, possible that he fell because of low blood pressure -- Hold lisinopril, reduce atenolol to 25 mg QD 4. Subtherapeutic INR, on chronic warfarin, present admission. Active. - INR 1.12 on admission. Goal between 2 and 3. Possible that patient has not been taking the medication - Restart home warfarin. We will need to consider full anticoagulation with enoxaparin 5. Seizure disorder, medically refractory partial complex and generalized seizure disorder, present on admission. Stable. - Home medications include divalproex ER 500 mg twice a day, Keppra 500 mg 3 tablets in the morning 2 tablets at night. - Patient was seen with Dr. Peter Lang with neurology as recent as 2016, however they will be taking medical leave from practice and have suggested follow-up with Dr. wolfe, but patient prefers and Leander Mariano. -- Check medication serum levels: valproate and keppra 6. Chronic ischemic heart disease, present on admission. Stable. - N STEMI in 2007 with 3 bare metal stents placed to high-grade left circumflex lesion, moderate disease of left anterior descending and right coronary arteries as well. - Continue home aspirin. - Lipid panel ordered. 7. Acute on chronic Hyponatremia, present on admission. Active. - 2nd to SIADH. - Sodium on admission 127, much improved on a.m. labs on 30 - We will order urine sodium with repeat metabolic panel. - Fluid restriction as above. - Gen. diet. 8. Chronic GERD, present on admission. Stable. - Continue home omeprazole- 9. Chronic Depression, present on admission. Active. - Home medications include buspirone, Escitalopram 10. SSS with dual-chamber pacemaker, present on admission. Active. - Continue home aspirin 325 daily. - Plan to interrogate pacemaker: will investigate 03/29 --- will order atenolol decreased dose 25 mg on 03/29 11. Hyperlipidemia, present on admission. Active. - Lipid panel ordered. - Continue home simvastatin 40 mg daily. 12. Insomnia, unspecified type and chronicity, present on admission. Active. - Home medications include hydroxyzine. 13. Anxiety, unspecified type and chronicity, present on admission. Active. - Continue home prazosin 1 mg twice a day. - Clonazepam 2 mg at night: Currently holding this as this may be related to his falls, was started decreased dose on 03/29 14. 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 Patient is on many medications and has [facility]. Social work consult ordered. : Nutrition consult ordered. Acetaminophen for mild pain when necessary. Bowel regimen Senna and MiraLAX scheduled and PRN. Zofran when necessary for nausea and vomiting. SubQ heparin held for now. SCDs in place. High-risk medications: Warfarin Disposition: Patient admitted under observation status. Discharge depended upon social placement and etiology of syncope. Consider discharge with higher level of care and currently receiving. According to utilization review, patient will not be able to qualify for inpatient stay Pain Evaluation: Pain not Controlled Resuscitation Status: CPR: Attempt Resuscitation Time spent 30 min Arelis Gonzalez DO March 28, 2017 07:01
--- NOTE | 2017-03-29 06:27 | NUR ---
Accidental calls Pt had uneventful night, slept most of shift and had minimal c/o pain that he did not request pain medication for. Pt called staff several times using call light and when asked what we could do for him, pt would say,"I didn't call" or "must have hit it by accident"
[2017-03-29] MEDS: BusPIRone 15 mg Dividose Tablet PO SCH (08:32)
[2017-03-29] MEDS: levETIRAcetam 500 mg Tablet PO SCH ×2 (08:36→22:13)
[2017-03-29] MEDS: Lidocaine Topical 5% Patch TOPICAL SCH (08:37)
--- NOTE | 2017-03-29 11:03 | NUR ---
Social Work: Continued Discharge Planning D: EMR reviewed. Pt is on day 2 of hospitalization [facility] for syncope and hyponatremia per H&P. SW met with hospitalist regarding [facility] v inpatient stay. Hospitalist requested pt be admitted for medical complexities. SW discussed hospitalist request with UR. UR will review pt stay once hospitalist progress notes are updated. SW updated hospitalist. SW placed T/C [facility] and confirmed pt is open with with RN PT OT and can resume services when pt is medically stable to discharge. PT recommends SNF, hospitalist recommends SNF. Pt's insurance will not cover SNF if pt is [facility]. SW confirmed pt does not have financial ability to pay privately for SNF at this time and is willing to go home and resume [facility] when medically stable. Pt is not medically stable at this time. SW will continue to follow to determine plan based on decision made by UR. A: Pt for whom a SNF has been deemed medically necessary. P: Pt is open with [facility] RN PT OT. Pt is currently [facility] and hospitalist is requesting UR to review pt for inpt status. SW will continue to follow to determine discharge plan after pt has been reviewed by UR. KLAUDIA Pena
--- NOTE | 2017-03-29 11:15 | NUR ---
Discharge Pt discharged at this time, all belongings gathered and returned to pt. VSS, no complains of LOC/seizure at time of discharge. IV D/Cd intact, tele monitor removed. Hard copy of new script given to pt to fill. Pt was unable to contact [facility] by phone, will be going directly to office at time of discharge to report seizure Dx. Discharge packet printed and reviewed with pt and SO. Pt declined offer of wheelchair, strong steady gait observed. PT escorted from [facility] to elevators by this RN. Pt to be drive to [facility] in private vehicle by SO. Pt aware of driving restriction until cleared by Neurology. Addendum: 03/29/17 at 1350 by RASHMI BARBOSA RN Note on incorrect patient
--- NOTE | 2017-03-29 13:11 | PCM.PNNEPH ---
Subjective Date of Service March 29, 2017 Subjective No acute issues overnight. Serum sodium has risen to 133. Patient denies fever, chills, nausea, vomiting, diarrhea. Exam Vital Signs Vital Sign - Last Date Time Temp Pulse Resp B/P Pulse Ox O2 Delivery O2 Flow Rate FiO2 03/29/17 12:50 36.5 65 19 136/81 95 Room Air Intake and Output 03/28/17 03/28/17 03/29/17 Cumulative From/Thru 15:00 23:00 07:00 03/27/17 17:01 - 03/29/17 04:00 Intake Total 872 ml 2622 ml Output Total 725 ml 725 ml Balance 147 ml 1897 ml Intake Oral 872 ml 1172 ml IV Total 1000 ml TPN/PPN 450 ml Output Urine Total 725 ml 725 ml # Bowel Movements 0 0 Exam General appearance: Awake, alert, oriented x3. In no acute distress. HEENT: No pallor. No jaundice, no JVD. No lymphadenopathy. No thyroid enlargement. PERRLA. Heart: Regular rate and rhythm. Normal S1, S2. No murmurs, rubs, or gallops. Lungs: Clear to auscultation bilaterally. No wheezing. No rhonchi. Abdomen soft, active bowel sounds. Nontender. Nondistended. No hepatosplenomegaly. Extremities: No edema, cyanosis or clubbing of fingers. Lab and Diagnostics Result Diagram: 03/28/17 0555 03/28/172011 X-Rays, CTs and MRIs CT BRAIN WITHOUT CONTRAST IMPRESSION: 1. No acute intracranial abnormality. 2. Yaba-av-gnpbhone cerebral volume loss. Dictated by: Vince Humphries M.D. on 03/27/2017 at 17:30 CT CERVICAL SPINE WITHOUT CONTRAST IMPRESSION: 1. No fracture or subluxation. 2. Extensive multilevel degenerative changes throughout the cervical spine as described. Mild multilevel spondylolisthesis also noted. Dictated by: Vince Humphries M.D. on 03/27/2017 at 17:31 X-RAY LEFT SHOULDER, MINIMUM TWO VIEWS IMPRESSION: 1. No fracture or dislocation. 2. Moderate glenohumeral joint degeneration and mild acromioclavicular joint degeneration. 3. Suggestion of calcific tendinitis. Dictated by: Vince Humphries M.D. on 03/27/2017 at 20:29 Plan Impression 1. Chronic hyponatremia, likely due to SIADH. Etiology of SIADH could be related to SSRI, chronic pain and narcotics. 2. Ground level fall. 3. Seizure disorder. 4. Coronary artery disease status post bare-metal stent placement. 5. Atrial fibrillation, sick sinus syndrome, status post pacemaker placement. 6. Childhood polio. Plan: - Recommend fluid restriction 1.5 L per day. - Increased salt intake, recommend salt 2 g twice a day. - Repeat BMP within 24-48 hrs. - Per renal standpoint, patient can be discharged. Bebo Faust MD March 29, 2017 13:11
--- NOTE | 2017-03-29 15:34 | NUR ---
Pain Pt complained of pain 7/10 at initial assessment, Tylenol requested as ordered and given. Additionally K- pad placed. Pt was able to rest quietly, appeared to be sleeping, RRR through out the initial part of shift. Pt reported pain had increased "a little bit" grimacing with movement, 5 mg of Oxycodone IR given with decreased pain level. Call light with in reach, will continue to monitor.
--- NOTE | 2017-03-29 20:48 | NUR ---
Inpatient status effective today, SILVIO signed.
--- NOTE | 2017-03-29 22:56 | PCM.PNMED ---
Subjective Date of Service March 29, 2017 Subjective Patient is seen and examined. He is talking slowly and gesturing slowly. says his right shoulder pain is about7/10 both before and after his fall. he always has had left leg weakness and atrophy due to polio. He was unable to have an MRI today because of his ICD. He states that he has 2 children but they never come to see him, which makes him feel anxious and sad. He states that he did walk with the physical therapy today Exam Vital Signs Vital Sign - Last Date Time Temp Pulse Resp B/P Pulse Ox O2 Delivery O2 Flow Rate FiO2 03/29/17 21:34 36.9 61 20 159/93 91 Room Air Intake and Output 03/28/17 03/28/17 03/29/17 Cumulative From/Thru 15:00 23:00 07:00 03/27/17 17:01 - 03/29/17 04:00 Intake Total 872 ml 2622 ml Output Total 725 ml 725 ml Balance 147 ml 1897 ml Intake Oral 872 ml 1172 ml IV Total 1000 ml TPN/PPN 450 ml Output Urine Total 725 ml 725 ml # Bowel Movements 0 0 Exam General: Mildly distressed. HEENT: Normocephalic, atraumatic. External ears without defect. Pupils equal, round, and reactive to light and accommodation. Anicteric sclerae, moist conjunctivae, and no lid lag. Neck: Supple with full range of motion. No jugular venous distension. No bruits. No lymphadenopathy or thyromegaly. Cardiovascular: Regular rate and rhythm with no murmurs, rubs, or gallops appreciated Pulmonary: Clear to auscultation bilaterally with no crackles, wheezes, or rhonchi. Normal respiratory effort with no use of accessory muscles. Abdomen: Bowel tones present. Soft, nontender, nondistended. No hepatosplenomegaly or masses appreciated. Extremities: No clubbing, cyanosis, edema, or lymphadenopathy appreciated. MSK: Weaker left upper extremity and left lower extremity. L LE< R LE Skin: Normal temperature, turgor, and texture; slight bruising over the face ( he says he fell on his back?) Psychiatric: Alert and oriented.delayed speecha nd gestures IVs and Medications IV Fluids none Medications Reviewed: Medications were reviewed in detail Lab and Diagnostics Result Diagram: 03/28/17 0555 03/28/172011 X-Rays, CTs and MRIs CT BRAIN WITHOUT CONTRAST IMPRESSION: 1. No acute intracranial abnormality. 2. Bwtk-cw-htxsemnl cerebral volume loss. Dictated by: Vince Humphries M.D. on 03/27/2017 at 17:30 CT CERVICAL SPINE WITHOUT CONTRAST IMPRESSION: 1. No fracture or subluxation. 2. Extensive multilevel degenerative changes throughout the cervical spine as described. Mild multilevel spondylolisthesis also noted. Dictated by: Vince Humphries M.D. on 03/27/2017 at 17:31 X-RAY LEFT SHOULDER, MINIMUM TWO VIEWS IMPRESSION: 1. No fracture or dislocation. 2. Moderate glenohumeral joint degeneration and mild acromioclavicular joint degeneration. 3. Suggestion of calcific tendinitis. Dictated by: Vince Humphries M.D. on 03/27/2017 at 20:29 Cardiac Echo Impressions US Echo Interpretation Summary 1) Normal left ventricular thickness, size, wall motion, and systolic function (EF 60-65%). 2) Normal right ventricular size and function. There is a pacemaker lead in the right ventricle. 3) Grade 2 diastolic dysfunction (pseudonormalization) pattern, consistent with elevated filling pressures. 4) Age related calcification of the arotic and mitral valves but no significant stenosis or regurgitation are present. 5) Mildly enlargement of the ascending aorta (diameter 3.9cm). 6) Normal pulmonary artery pressures. 7) Compared to the Echo done 11/09/2009, no significant change when compared visually Reading Physician:03:25 PM Assessment & Plan Mr. Jamie Roca is a very pleasant 66-year-old gentleman with a complex past medical history including A. 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 He lives alone and his story has fluctuated slightly. He reports that he fell and hit his head on a bolt which made such a loud noise that his neighbor heard and call their other friend and made her way into the house. He also reported that he had no recollection of the events preceding the fall or the fall itself, and per ER notes that he was attempting to stand and fell backwards. He reports chronic left shoulder and left upper quadrant abdominal pain that is reported as 10 out of 10. The patient lives alone and has [facility] to help with medications and he reports compliance with long list of medications. He ambulates with walker and cane. He denies fever, chills, dizziness, change in vision, headache, change in appetite, nausea, vomiting, chest pain, shortness of breath, dysuria, hematochezia, hematemesis, hematuria, change in stool habits. 1. Syncope or AMS, GLF - Differential diagnosis includes : Neurologic versus cardiogenic syncope. Recurrent medically refractory generalized seizure disorder, Patient lives alone has many medications and is suffering from effects of childhood polio with severe left-sided weakness and debility. He has previous falls at home, sick sinus syndrome with biventricular pacemaker in place and on chronic warfarin. - Orthostatic blood pressures ordered: negative - CT head and C-spine negative. - Device is a dual-chamber [employer] model 2210, serial [id number] implanted 2009. Last pacemaker check was 01/28/2017, with normal findings and 5.1-6.5 year battery life: We will investigate this on 03/29: Requested a pacemaker check again on 03/29. [employer] rep will come tomorrow AM. - UA with reflex ordered, UA osmolality ordered. : UA is negative, urine osmolarity being followed by tread builder - EKG with paced rhythm. - Physical therapy consult ordered: They recommended SNF placement on 03/29 -- Initially his pain medications are decreased but he is distressed all day regarding this. States that pain meds are for his preoperative polio-related pain, will reinstate oxycodone 10 mg every 4 hours when necessary. Added Flexeril and Lidoderm patch -- will restart his home pain meds -- Tried to order MRI to understand his altered mentation, could not be done due to ICD hardware. 2. SIADH, present on admission. Active. - Serum sodium 126, Serum osmolality 270, urine sodium 70, urine osmolality 346 , - Continue fluid restriction and 10- 15 mL/kg per day = ~740 - 1111 ml per day. - Avoid sodium correction of greater than 4-6/L within the first 3 hours and no greater than 6 mEq per liter per day. - Nephrology following, recommendations greatly appreciated. 3. Hypertension, not present on admission. Active. - Blood pressure admission 131/76 currently 151/91. -Orthostatics: Negative for orthostatic hypotension -- Hold home medication lisinopril his blood pressures are not that great, possible that he fell because of low blood pressure -- Hold lisinopril, reduce atenolol to 25 mg QD 4. Subtherapeutic INR, on chronic warfarin, present admission. Active. - INR 1.12 on admission. Goal between 2 and 3. Possible that patient has not been taking the medication - Restart home warfarin/pharm consult. full anticoagulation with enoxaparin. 5. Seizure disorder, medically refractory partial complex and generalized seizure disorder, present on admission. Stable. - Home medications include divalproex ER 500 mg twice a day, Keppra 500 mg 3 tablets in the morning 2 tablets at night. - Patient was seen with Dr. Peter Lang with neurology as recent as 2016, however they will be taking medical leave from practice and have suggested follow-up with Dr. wolfe, but patient prefers and [facility]. -- Check medication serum levels: valproate and keppra 6. Chronic ischemic heart disease, present on admission. Stable. - N STEMI in 2007 with 3 bare metal stents placed to high-grade left circumflex lesion, moderate disease of left anterior descending and right coronary arteries as well. - Continue home aspirin. - Lipid panel ordered. 7. Acute on chronic Hyponatremia, present on admission. Active. - 2nd to SIADH. - Sodium on admission 127, much improved on a.m. labs on 30 - We will order urine sodium with repeat metabolic panel. - Fluid restriction as above. - Gen. diet. 8. Chronic GERD, present on admission. Stable. - Continue home omeprazole- 9. Chronic Depression, present on admission. Active. - Home medications include buspirone, Escitalopram 10. SSS with dual-chamber pacemaker, present on admission. Active. - Continue home aspirin 325 daily. - Plan to interrogate pacemaker: will investigate 03/29 --- will order atenolol decreased dose 25 mg on 03/29 11. Hyperlipidemia, present on admission. Active. - Lipid panel ordered. - Continue home simvastatin 40 mg daily. 12. Insomnia, unspecified type and chronicity, present on admission. Active. - Home medications include hydroxyzine. 13. Anxiety, unspecified type and chronicity, present on admission. Active. - Continue home prazosin 1 mg twice a day. - Clonazepam 2 mg at night: Currently holding this as this may be related to his falls, was started decreased dose on 03/29 14. 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 Patient is on many medications and has [facility]. Social work consult ordered. : Nutrition consult ordered. Acetaminophen for mild pain when necessary. Bowel regimen Senna and MiraLAX scheduled and PRN. Zofran when necessary for nausea and vomiting. SCDs in place. High-risk medications: Warfarin Disposition: Patient admitted under observation status. Discharge depended upon social placement and etiology of syncope. Consider discharge with higher level of care and currently receiving. According to utilization review, patient will not be able to qualify for inpatient stay Pain Evaluation: Adequate Pain Control VTE Prophylaxis: Sub-Q Enoxaparin Resuscitation Status: CPR: Attempt Resuscitation Time spent 25 min Arelis Gonzalez DO March 29, 2017 22:56
[2017-03-30] VITALS (11 sets, daily range): BP systolic 144–166; BP diastolic 80–89; PULSE 30–66; RESP 16–18; O2SAT 94–98
--- NOTE | 2017-03-30 03:44 | NUR ---
sleep patient sleeping well. safety precautions in place
[2017-03-30] MEDS: BusPIRone 15 mg Dividose Tablet PO SCH (09:03)
[2017-03-30] MEDS: levETIRAcetam 500 mg Tablet PO SCH ×2 (09:04→21:15)
[2017-03-30] MEDS: Lidocaine Topical 5% Patch TOPICAL SCH (09:06)
[2017-03-30 10:06] LABS: INR 1.05 ratio
--- NOTE | 2017-03-30 10:35 | PCM.PHAPRO ---
Progress Fall from ground level Date March 30-March INR 1.18 () 1.05 INR change #VALUE! Warf Dose 5mg 5 MG Florin Silverman Pharm.D March 30, 2017 10:35
--- NOTE | 2017-03-30 10:45 | NUR ---
Pain Pt complains of shoulder and hip pain, PO Tylenol and Flexeril given as ordered. L arm elevated on pillow and heating pad applied to area of discomfrt. Pt resting quietly, appears to be sleeping. RRR. Call light with in reach, will continue to monitor.
--- NOTE | 2017-03-30 16:01 | NUR ---
Social Work-continued d/c planning: Data:EMR Reviewed. Pt is on day 3 of hospitalization for syncope per H&P. Pt is not medically stable anticipate 1-2 more days. PT continues to work with pt and recommending SNF ambulating around 15-25 ft. SW followed up with pt to discuss discharge planning, SW role explained. SW explained the recommendation of SNF. SW also explained since pt was just changed from obs to inpt on 03/29, pt would not be able to access his MCR benefit, SW explained a Medicaid bed could be looked for. Pt is unsure if he wants to go to facility. Pt feels like he may just want to return home again with [facility]. Pt also has [facility] 3 times a week for 3 hours a day. Pt is not able to remember the name of his Assistant Store Director. SW requested to speak with sister and pt is agreeable. SW attempted to reach sister Loulou [phone] or cell [phone], no answer. SW will plan to follow up with pt again tomorrow. SW will continue to follow. Assessment:Home with resume HH vs SNF. Plan:Pt to either discharge home with [facility] and [facility] vs SNF. Pt does not qualify under his MCR, but SW could look for a possible Medicaid bed. Pt is not agreeable to go to SNF at this time. PT continues to recommend SNF.SW to follow up tomorrow with pt. SW will continue to follow. KLAUDIA Andrews
[2017-03-31] VITALS (8 sets, daily range): BP systolic 130–166; BP diastolic 78–92; PULSE 60–68; RESP 16–18; O2SAT 95–97
--- NOTE | 2017-03-31 02:08 | PCM.PNMED ---
Subjective Date of Service March 31, 2017 Subjective Patient is seen and examined. He is still struggling with his arm pain. He is unable to reach for a plastic cup and hold it. PTOT is recommending SNF due to his mobility status. Patient is still not completely therapeutic with his INR, he is not able to do in oxygen shots at home. Note that he has missed his medications prior to coming to the hospital. It is concerning that patient will not be able to take his on medications on the day the home care help does not go to his house. He denies overnight fevers, chills. He states that he is getting up occasionally to go to the bathroom No other concerns expressed Exam Vital Signs Vital Sign - Last Date Time Temp Pulse Resp B/P Pulse Ox O2 Delivery O2 Flow Rate FiO2 03/31/17 00:41 36.6 64 18 157/82 95 Room Air Intake and Output 03/30/17 03/30/17 03/31/17 Cumulative From/Thru 15:00 23:00 07:00 03/27/17 17:01 - 03/30/17 21:10 Intake Total 500 ml 4172 ml Output Total 3300 ml Balance 500 ml 872 ml Intake Oral 500 ml 2722 ml IV Total 1000 ml TPN/PPN 450 ml Output Urine Total 3300 ml # Voids 2 2 # Bowel Movements 1 1 Exam General: Mildly distressed. HEENT: Normocephalic, atraumatic. External ears without defect. Pupils equal, round, and reactive to light and accommodation. Anicteric sclerae, moist conjunctivae, and no lid lag. Neck: Supple with full range of motion. No jugular venous distension. No bruits. No lymphadenopathy or thyromegaly. Cardiovascular: Regular rate and rhythm with no murmurs, rubs, or gallops appreciated Pulmonary: Clear to auscultation bilaterally with no crackles, wheezes, or rhonchi. Normal respiratory effort with no use of accessory muscles. Abdomen: Bowel tones present. Soft, nontender, nondistended. No hepatosplenomegaly or masses appreciated. Extremities: No clubbing, cyanosis, edema, or lymphadenopathy appreciated. MSK: Weaker left upper extremity and left lower extremity. L LE< R LE. He seems to be grimacing no matter which arm is palpated (This appears to be his baseline) Skin: Normal temperature, turgor, and texture; slight bruising over the face ( IVs and Medications Medications Reviewed: Medications were reviewed in detail Lab and Diagnostics Result Diagram: 03/28/17 0555 03/30/17 0645 X-Rays, CTs and MRIs CT BRAIN WITHOUT CONTRAST IMPRESSION: 1. No acute intracranial abnormality. 2. Ybkr-kf-pkyzwrsv cerebral volume loss. Dictated by: Vince Humphries M.D. on 03/27/2017 at 17:30 CT CERVICAL SPINE WITHOUT CONTRAST IMPRESSION: 1. No fracture or subluxation. 2. Extensive multilevel degenerative changes throughout the cervical spine as described. Mild multilevel spondylolisthesis also noted. Dictated by: Vince Humphries M.D. on 03/27/2017 at 17:31 X-RAY LEFT SHOULDER, MINIMUM TWO VIEWS IMPRESSION: 1. No fracture or dislocation. 2. Moderate glenohumeral joint degeneration and mild acromioclavicular joint degeneration. 3. Suggestion of calcific tendinitis. Dictated by: Vince Humphries M.D. on 03/27/2017 at 20:29 Cardiac Echo Impressions US Echo Interpretation Summary 1) Normal left ventricular thickness, size, wall motion, and systolic function (EF 60-65%). 2) Normal right ventricular size and function. There is a pacemaker lead in the right ventricle. 3) Grade 2 diastolic dysfunction (pseudonormalization) pattern, consistent with elevated filling pressures. 4) Age related calcification of the arotic and mitral valves but no significant stenosis or regurgitation are present. 5) Mildly enlargement of the ascending aorta (diameter 3.9cm). 6) Normal pulmonary artery pressures. 7) Compared to the Echo done 11/09/2009, no significant change when compared visually Reading Physician:03:25 PM Assessment & Plan Mr. Jamie Roca is a very pleasant 66-year-old gentleman with a complex past medical history including A. 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 He lives alone and his story has fluctuated slightly. He reports that he fell and hit his head on a bolt which made such a loud noise that his neighbor heard and call their other friend and made her way into the house. He also reported that he had no recollection of the events preceding the fall or the fall itself, and per ER notes that he was attempting to stand and fell backwards. He reports chronic left shoulder and left upper quadrant abdominal pain that is reported as 10 out of 10. The patient lives alone and has [facility] to help with medications and he reports compliance with long list of medications. He ambulates with walker and cane. He denies fever, chills, dizziness, change in vision, headache, change in appetite, nausea, vomiting, chest pain, shortness of breath, dysuria, hematochezia, hematemesis, hematuria, change in stool habits. 1. Syncope or AMS, GLF - Differential diagnosis includes : Neurologic versus cardiogenic syncope. Recurrent medically refractory generalized seizure disorder, Patient lives alone has many medications and is suffering from effects of childhood polio with severe left-sided weakness and debility. He has previous falls at home, sick sinus syndrome with biventricular pacemaker in place and on chronic warfarin. - Orthostatic blood pressures ordered: negative - CT head and C-spine negative. - Device is a dual-chamber [employer] model 2210, serial [id number] implanted 2009. Last pacemaker check was 01/28/2017, with normal findings and 5.1-6.5 year battery life: We will investigate this on 03/29: Requested a pacemaker check again on 03/29. [employer] rep will come tomorrow AM. - UA with reflex ordered, UA osmolality ordered. : UA is negative, urine osmolarity being followed by montessori teacher - EKG with paced rhythm. - Physical therapy consult ordered: They recommended SNF placement on 03/29 -- Initially his pain medications are decreased but he is distressed all day regarding this. States that pain meds are for his preoperative polio-related pain, will reinstate oxycodone 10 mg every 4 hours when necessary. Added Flexeril and Lidoderm patch -- Tried to order MRI to understand his altered mentation better, could not be done due to ICD hardware 03/29 -- Pacemaker was reportedly interrogated and checked fine on 03/30 2. SIADH, present on admission. Active. - Serum sodium 126, Serum osmolality 270, urine sodium 70, urine osmolality 346 , - Continue fluid restriction and 10- 15 mL/kg per day = ~740 - 1111 ml per day. - Avoid sodium correction of greater than 4-6/L within the first 3 hours and no greater than 6 mEq per liter per day. - Nephrology following, recommendations greatly appreciated. -- Nephrology says that he can go home and take 2 g daily sodium tablets and follow with them in 3 weeks, no fluid restriction needed for discharge 3. Hypertension, not present on admission. Active. - Blood pressure admission 131/76 currently 151/91. -Orthostatics: Negative for orthostatic hypotension -- Hold home medication lisinopril his blood pressures are not that great, possible that he fell because of low blood pressure -- Lisinopril 20 mg twice a day is added back in today due to concern for elevated blood pressures, continue atenolol to 25 mg QD. 4. Subtherapeutic INR, on chronic warfarin, present admission. Active. - INR 1.12 on admission. Goal between 2 and 3. Possible that patient has not been taking the medication - Restart home warfarin/pharm consult. full anticoagulation with enoxaparin -- Patient will not be able to discharge home with this level of maintenance. He cannot even move his arm and thus, he cannot be expected to give himself subcutaneous shots. Home health is only available 3 times a week but he will have to do the shots daily until he becomes therapeutic which could take a week or so. 5. Seizure disorder, medically refractory partial complex and generalized seizure disorder, present on admission. Stable. - Home medications include divalproex ER 500 mg twice a day, Keppra 500 mg 3 tablets in the morning 2 tablets at night. - Patient was seen with Dr. Peter Lang with neurology as recent as 2016, however they will be taking medical leave from practice and have suggested follow-up with Dr. wolfe, but patient prefers and [facility]. -- Check medication serum levels: valproate and keppra: Levels are still pending 6. Chronic ischemic heart disease, present on admission. Stable. - N STEMI in 2007 with 3 bare metal stents placed to high-grade left circumflex lesion, moderate disease of left anterior descending and right coronary arteries as well. - Continue home aspirin. - Lipid panel ordered and is within normal 7. Acute on chronic Hyponatremia, present on admission. Active. - 2nd to SIADH. - Sodium on admission 127, much improved on a.m. labs on - We will order urine sodium with repeat metabolic panel. - Fluid restriction as above. - Gen. diet. -- Nephrology states fluid restriction can be lifted for DC, sodium 2 g tablets daily until he sees Nephro for a follow-up in 3 weeks 8. Chronic GERD, present on admission. Stable. - Continue home omeprazole- 9. Chronic Depression, present on admission. Active. - Home medications include buspirone, Escitalopram 10. SSS with dual-chamber pacemaker, present on admission. Active. - Continue home aspirin 325 daily. - Plan to interrogate pacemaker: will investigate 03/29 --- will order atenolol decreased dose 25 mg on 03/29 -- Pacemaker check completed on 03/30 11. Hyperlipidemia, present on admission. Active. - Lipid panel ordered. An within normal - Continue home simvastatin 40 mg daily. 12. Insomnia, unspecified type and chronicity, present on admission. Active. - Home medications include hydroxyzine. 13. Anxiety, unspecified type and chronicity, present on admission. Active. - Continue home prazosin 1 mg twice a day. - Clonazepam 2 mg at night: Currently holding this as this may be related to his falls, was started decreased dose on 03/29 14. 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 Patient is on many medications and has [facility]. Social work consult ordered. Patient can discharge home to the SNF for return of his INR is close to being therapeutic. : Nutrition consult ordered. SCDs in place. High-risk medications: Warfarin Disposition: Patient admitted under observation status. Discharge depended upon social placement and etiology of syncope. Consider discharge with higher level of care and currently receiving. Patient became impatient and 03/29, could not be discharged on 03/30 due to need for enoxaparin administration. Social work is working on sniff placement. The he will need 1 more night to qualify Pain Evaluation: Adequate Pain Control VTE Prophylaxis: Sub-Q Enoxaparin Resuscitation Status: CPR: Attempt Resuscitation Time spent 30 minutes Arelis Gonzalez DO March 31, 2017 02:08
--- NOTE | 2017-03-31 07:20 | NUR ---
activity/ sleep patient slept well through the night no complaints of pain has heating pad. compliant with fall precautions
[2017-03-31 07:57] LABS: INR 1.4 ratio
[2017-03-31] MEDS: BusPIRone 15 mg Dividose Tablet PO SCH (10:32)
[2017-03-31] MEDS: levETIRAcetam 500 mg Tablet PO SCH ×2 (10:33→21:31)
[2017-03-31] MEDS: Lidocaine Topical 5% Patch TOPICAL SCH (10:44)
[2017-03-31] MEDS ORDERED: Alum-Mag Hydrox-Simeth 30 mL Suspension PO PRN (11:55)
[2017-03-31] MEDS ORDERED: Ondansetron 2 mg/mL 2 mL Inj IVPUSH PRN (11:55)
--- NOTE | 2017-03-31 15:13 | NUR ---
ADL's/Activity Pt up to bathroom this AM for ADL's. Able to perform most hygiene ADL's with minimum to no assistance. 1P assist for transfers and ambulation w/ FWW to bathroom. Pt steady on feet but favors right side -especially when getting up, does not plant L foot on the ground. Pt reports weakness on left side d/t past polio condition, L leg visibly smaller than R, and high 8/10 pain in L shoulder. Continue to keep pt on 1P assist. Pt did loose balance one time when attempting to lower down to toilet seat. Seat is raised for pt ability. Pt was assisted to toilet seat safely. PIPE PRODUCTION WORKER aware of care needs, seizure pads in place, rishabh alarm on - no falls during shift.
--- NOTE | 2017-03-31 16:07 | PCM.PHAPRO ---
Progress Fall from ground level WARFARIN DOSING PER PHARMACY [facility] shanique RTClint DFF Date March 30-March 31-March INR 1.18 () 1.05 1.4 INR change #VALUE! 0.35 Warf Dose 5mg 5 MG 5 MG A/P -Subtherapeutic INR on admit now uptrending. Concerning for compliance issues given reported home regimen. No acute S/S of bleeding. -Will continue with warfarin 5mg this evening. -Pharmacy will continue to monitor. Lio Palm, PharmD Lio Palm March 31, 2017 16:06
--- NOTE | 2017-03-31 18:25 | DRSVH ---
PROCEDURE: US BILATERAL DUPLEX DOPPLER IMAGING OF THE CAROTIDS ([id number]) INDICATIONS: FALL, SYNCOPE AND SEIZERS TECHNIQUE: Color and pulse Doppler interrogation was performed of both carotid systems, with image documentation and velocity measurements. COMPARISON: [facility], US, US CAROTID DPLX DOPPLER BILAT, 03/28/2017, 8:52. [facility], US, US CAROTID DPLX DOPPLER BILAT, 03/28/2017, 8:52. FINDINGS: All stenosis calculations are based on NASCET criteria. Right side: Brachial blood pressure: 132/81 mm Hg. Common carotid artery peak systolic velocity: 73 cm/sec. Internal carotid artery peak systolic velocity: 82 cm/sec. Internal carotid artery end diastolic velocity: 7 cm/sec. External carotid artery peak systolic velocity: 99 cm/sec. ICA/CCA peak systolic ratio: 1.12. Atwood scale imaging description: Moderate calcific plaque at the bifurcation Percent internal carotid artery stenosis: Less than 50%. Vertebral artery: Flow direction is antegrade. Left side: Brachial blood pressure: Could not be obtained. Common carotid artery peak systolic velocity: 82 cm/sec. Internal carotid artery peak systolic velocity: 96 cm/sec. Internal carotid artery end diastolic velocity: 15 cm/sec. External carotid artery peak systolic velocity: 124 cm/sec. ICA/CCA peak systolic ratio: 1.2. Atwood scale imaging description: Moderate calcific plaque at the bifurcation. Percent internal carotid artery stenosis: Less than 50%. Vertebral artery: Flow direction is antegrade. IMPRESSION: 1. Less than 50% bilateral internal carotid artery stenosis. 2. Patent bilateral vertebral arteries. Dictated by: Curt Cuadra M.D. on 03/31/2017 at 18:16 Approved by: Curt Cuadra M.D. on 03/31/2017 at 18:24
--- NOTE | 2017-03-31 18:59 | PCM.PNMED ---
Subjective Date of Service March 31, 2017 Subjective Denies any new issues/complaints Exam Vital Signs Vital Sign - Last Date Time Temp Pulse Resp B/P Pulse Ox O2 Delivery O2 Flow Rate FiO2 03/31/17 18:11 36.7 68 18 138/86 96 Room Air Intake and Output 03/30/17 03/30/17 03/31/17 Cumulative From/Thru 15:00 23:00 07:00 03/27/17 17:01 - 03/31/17 06:19 Intake Total 500 ml 400 ml 4572 ml Output Total 650 ml 3950 ml Balance 500 ml -250 ml 622 ml Intake Oral 500 ml 400 ml 3122 ml IV Total 1000 ml TPN/PPN 450 ml Output Urine Total 650 ml 3950 ml # Voids 2 2 # Bowel Movements 1 1 General: Alert, Oriented X3, Cooperative Head: Normal Eyes: Scleral Anicteric Nose: Mucous Membr Moist/[place] Mouth: Mucous Membr Moist/[place] Neck: Supple Chest & Lungs: Chest Wall Normal, Clear to auscultation & percussion Cardiovascular: Regular Rate/Rhythm Pulses: NL carotid, radial, femoral, DP, PT Abdomen: Non-tender, Non-distended, Normoactive bowel tones, Soft Extremities: No cyanosis/clubbing/edma bilat Neurological: Cranial Nerves 2-12 Intact, Other (Weaker left upper extremity and left lower extremity. L LE< R LE. ) IVs and Medications Medications Reviewed: Medications were reviewed in detail Lab and Diagnostics Result Diagram: 03/28/17 0555 03/30/17 0645 X-Rays, CTs and MRIs CT BRAIN WITHOUT CONTRAST IMPRESSION: 1. No acute intracranial abnormality. 2. Akyi-bk-owveywlj cerebral volume loss. Dictated by: Vince Humphries M.D. on 03/27/2017 at 17:30 CT CERVICAL SPINE WITHOUT CONTRAST IMPRESSION: 1. No fracture or subluxation. 2. Extensive multilevel degenerative changes throughout the cervical spine as described. Mild multilevel spondylolisthesis also noted. Dictated by: Vince Humphries M.D. on 03/27/2017 at 17:31 X-RAY LEFT SHOULDER, MINIMUM TWO VIEWS IMPRESSION: 1. No fracture or dislocation. 2. Moderate glenohumeral joint degeneration and mild acromioclavicular joint degeneration. 3. Suggestion of calcific tendinitis. Dictated by: Vince Humphries M.D. on 03/27/2017 at 20:29 Cardiac Echo Impressions US Echo Interpretation Summary 1) Normal left ventricular thickness, size, wall motion, and systolic function (EF 60-65%). 2) Normal right ventricular size and function. There is a pacemaker lead in the right ventricle. 3) Grade 2 diastolic dysfunction (pseudonormalization) pattern, consistent with elevated filling pressures. 4) Age related calcification of the arotic and mitral valves but no significant stenosis or regurgitation are present. 5) Mildly enlargement of the ascending aorta (diameter 3.9cm). 6) Normal pulmonary artery pressures. 7) Compared to the Echo done 11/09/2009, no significant change when compared visually Reading Physician:03:25 PM Assessment & Plan 66-year-old male with a complex past medical history including A. 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 He lives alone and his story has fluctuated slightly. # Acute syncope vs acute mechanical ground level fall, vs seizure. Present on admission. - Differential diagnosis includes : Neurologic versus cardiogenic syncope. Recurrent medically refractory generalized seizure disorder, Patient lives alone has many medications and is suffering from effects of childhood polio with severe left-sided weakness and debility. He has previous falls at home - Orthostatic blood pressures negative - CT head and C-spine negative. 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 Improved - Appreciate nephrology consult. Will followup with recs - Continue fluid restriction - Continue 2 g daily sodium tablets and follow with nephrology in 3 weeks (no fluid restriction needed for discharge per earlier notes) # Hypertension, not present on admission. Active. - Continue with Lisinopril 20 mg twice a day - Continue atenolol 25 mg QD. # Chronic A-fib. Rate controlled. - Continue with Atenolol # Chronic anticoagulation with Warfarin - Subtherapeutic INR, present admission. - Continue with Lovenox to Coumadin bridging (dose per pharmacy) - Follow daily INR # History of seizure disorder, medically refractory partial complex and generalized seizure disorder, present on admission. Stable. - Continue with home medications include divalproex ER 500 mg twice a day, Keppra 500 mg 3 tablets in the morning 2 tablets at night. - Patient was seen with Dr. Peter Lang with neurology as recent as 2016, however they will be taking medical leave from practice and have suggested follow-up with Dr. wolfe, but patient prefers and Leander Mariano. # Chronic ischemic heart disease, present on admission. Stable. - NSTEMI in 2007 with 3 bare metal stents placed to high-grade left circumflex lesion, moderate disease of left anterior descending and right coronary arteries as well. - Continue home aspirin. - Lipid panel ordered and is within normal # Chronic GERD, present on admission. Stable. - Continue home omeprazole- # Chronic Depression, present on admission. stable - Continue Home medications of buspirone, Escitalopram # SSS with dual-chamber pacemaker, present on admission. Stable. - Continue home aspirin 325 daily. - Pacemaker check completed on 03/30 # Hyperlipidemia, present on admission. sable. - Continue home simvastatin 40 mg daily. # Insomnia, unspecified type and chronicity, present on admission. Stable. - Home medications include hydroxyzine. # Anxiety, unspecified type and chronicity, present on admission. Stable. - Continue home prazosin 1 mg twice a day. 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 home vs SNF in 2-3 days pending therapeutic INR. Given risk of fall ? if we should continue Coumadin or not. Will try to discuss with PCP VTE Prophylaxis: Sub-Q Enoxaparin Resuscitation Status: CPR: Attempt Resuscitation LmKristen huttond March 31, 2017 18:59 13. Anxiety, unspecified type and chronicity, present on admission. Active. - Continue home prazosin 1 mg twice a day. - Clonazepam 2 mg at night: Currently holding this as this may be related to his falls, was started decreased dose on 03/29 14. 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 Patient is on many medications and has [facility]. Social work consult ordered. Patient can discharge home to the SNF for return of his INR is close to being therapeutic. : Nutrition consult ordered. SCDs in place. High-risk medications: Warfarin Disposition: Patient admitted under observation status. Discharge depended upon social placement and etiology of syncope. Consider discharge with higher level of care and currently receiving. Patient became impatient and 03/29, could not be discharged on 03/30 due to need for enoxaparin administration. Social work is working on sniff placement. The he will need 1 more night to qualify VTE Prophylaxis: Sub-Q Enoxaparin Resuscitation Status: CPR: Attempt Resuscitation Augie Coats March 31, 2017 18:59
[2017-03-31] MEDS: Polyethylene Glycol (PEG) 17 Gm Powder PO PRN (21:50)
[2017-04-01] VITALS (7 sets, daily range): BP systolic 118–157; BP diastolic 64–85; PULSE 61–68; RESP 14–18; O2SAT 95–98
--- NOTE | 2017-04-01 04:18 | NUR ---
PT ACTIVITY/PAIN Pt has been up to BR, 1-2 person contact guard w/ FWW. Pts left arm and leg are significantly weak per baseline. Pt has had continual c/o pain primarily in Left shoulder, and back. Pt rated pain "6-8". Pt has been given prn pain medications and Kpad in use. Some relief. Continue to monitor. Call light in reach. Bed alarm on. Intentional rounding.
[2017-04-01 07:17] LABS: Mean Corpuscular Hemoglobin 31.9 pg (27.0-35.0); Mean Corpuscular Volume 91.9 fL (81-100)
[2017-04-01 07:23] LABS: INR 2.4 ratio
[2017-04-01] MEDS: BusPIRone 15 mg Dividose Tablet PO SCH (08:07)
[2017-04-01] MEDS: levETIRAcetam 500 mg Tablet PO SCH ×2 (08:08→19:53)
[2017-04-01] MEDS: Lidocaine Topical 5% Patch TOPICAL SCH (08:11)
[2017-04-01 09:16] LABS: Levetiracetam (Keppra) 20.3 ug/mL (10.0-40.0)
--- NOTE | 2017-04-01 10:51 | NUR ---
Social Work-Readiness for Discharge: Data: EMR Reviewed. Pt is on day 5 of hospitalization for syncope per H&P. Per morning rounds Pt is not medically stable and anticipate 1-2 more days. PT continues to work with pt and recommending SNF. MD has placed order for SNF. SW met with pt at bedside to follow up on recommendation of SNF and provide choice list. Pt is agreeable to SNF and stated preference as [facility], where he has been in the past. SW also updated sister Loulou via phone who is agreeable to SNF. Pt also has RICK and is open with [facility] EISENBERG RN/PT/OT. School Bus Dispatcher will send referral to [facility] SNF per MD orders and pt choice. SW will continue to follow. Assessment:Pt who would benefit from SNF Plan: Pt likely to discharge to [facility] SNF per PT recommendation and MD orders. Referral sent. SW to follow up with pt as more info is received. SW will continue to follow. KLAUDIA Robison Addendum: 04/01/17 at 1248 by JEFF CALABRESE SS SW received call from [facility] stating they are able to accept pt at discharge. KLAUDIA Robison
--- NOTE | 2017-04-01 11:00 | NUR ---
[facility] per [facility]
--- NOTE | 2017-04-01 17:02 | NUR ---
PAIN Pt reporting continual pain up to 8/10 in Upper L shoulder r/t joint and tendonitis. Administered PRN and scheduled medications per orders. Pain reduced to 5/10 but continues to exist. Pt squints and exacerbates pain with movement, relies on R side to compensate for use on L. Suggest pt to limit movement with L arm and elevate with a pillow. Pt report increase comfort with minimal exacerbations of pain.
--- NOTE | 2017-04-01 18:12 | PCM.PNMED ---
Subjective Date of Service April 01, 2017 Subjective Denies any new issues/complaints. Continued left shoulder pain Exam Vital Signs Vital Sign - Last Date Time Temp Pulse Resp B/P Pulse Ox O2 Delivery O2 Flow Rate FiO2 04/01/17 16:49 36.5 68 18 136/64 95 Room Air Intake and Output 03/31/17 03/31/17 04/01/17 Cumulative From/Thru 15:00 23:00 07:00 03/27/17 17:01 - 04/01/17 06:48 Intake Total 1000 ml 5572 ml Output Total 1675 ml 5625 ml Balance -675 ml -53 ml Intake Oral 1000 ml 4122 ml IV Total 1000 ml TPN/PPN 450 ml Output Urine Total 1675 ml 5625 ml # Voids 2 # Bowel Movements 0 1 Exam General: Alert, Cooperative Head: Normal Eyes: Scleral Anicteric Nose: Mucous Membr Moist/[place] Mouth: Mucous Membr Moist/[place] Neck: Supple Chest & Lungs: Chest Wall Normal, Clear to auscultation bilat Cardiovascular: Regular Rate/Rhythm Pulses: NL carotid, radial, femoral, DP, PT Abdomen: Non-tender, Non-distended, Normoactive bowel tones, Soft Extremities: No cyanosis/clubbing/edema bilat Neurological: Cranial Nerves 2-12 Intact, Other (Weaker left upper extremity and left lower extremity. L LE< R LE. ) IVs and Medications Medications Reviewed: Medications were reviewed in detail Lab and Diagnostics Result Diagram: 04/01/1755 04/01/17 0655 X-Rays, CTs and MRIs CT BRAIN WITHOUT CONTRAST IMPRESSION: 1. No acute intracranial abnormality. 2. Accq-mn-xrtkuouu cerebral volume loss. Dictated by: Vince Humphries M.D. on 03/27/2017 at 17:30 CT CERVICAL SPINE WITHOUT CONTRAST IMPRESSION: 1. No fracture or subluxation. 2. Extensive multilevel degenerative changes throughout the cervical spine as described. Mild multilevel spondylolisthesis also noted. Dictated by: Vince Humphries M.D. on 03/27/2017 at 17:31 X-RAY LEFT SHOULDER, MINIMUM TWO VIEWS IMPRESSION: 1. No fracture or dislocation. 2. Moderate glenohumeral joint degeneration and mild acromioclavicular joint degeneration. 3. Suggestion of calcific tendinitis. Dictated by: Vince Humphries M.D. on 03/27/2017 at 20:29 Cardiac Echo Impressions US Echo Interpretation Summary 1) Normal left ventricular thickness, size, wall motion, and systolic function (EF 60-65%). 2) Normal right ventricular size and function. There is a pacemaker lead in the right ventricle. 3) Grade 2 diastolic dysfunction (pseudonormalization) pattern, consistent with elevated filling pressures. 4) Age related calcification of the arotic and mitral valves but no significant stenosis or regurgitation are present. 5) Mildly enlargement of the ascending aorta (diameter 3.9cm). 6) Normal pulmonary artery pressures. 7) Compared to the Echo done 11/09/2009, no significant change when compared visually Reading Physician:03:25 PM Assessment & Plan 66-year-old male with a complex past medical history including A. 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 # Acute syncope vs acute mechanical ground level fall, vs seizure. Present on admission. - Differential diagnosis includes : Neurologic versus cardiogenic syncope. Recurrent medically refractory generalized seizure disorder, Patient lives alone has many medications and is suffering from effects of childhood polio with severe left-sided weakness and debility. He has previous falls at home - Orthostatic blood pressures negative - CT head and C-spine negative. 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 Improved - Appreciate nephrology consult. Will followup with recs - Continue fluid restriction - Continue 2 g daily sodium tablets and follow with nephrology in 3 weeks (no fluid restriction needed for discharge per earlier notes) # Acute on chronic left shoulder pain. - Imaging suggestive of tendinitis - Ibuprofen x 1 day - Continue with pain control and supportive care as needed. # Hypertension, not present on admission. Active. - Continue with Lisinopril 20 mg twice a day - Continue atenolol 25 mg QD. # Chronic A-fib. Rate controlled. - Continue with Atenolol # Chronic anticoagulation with Warfarin - Subtherapeutic INR, present admission. Now rapidly elevated to therapeutic range - Continue Coumadin (dose per pharmacy) - Follow daily INR # History of seizure disorder, medically refractory partial complex and generalized seizure disorder, present on admission. Stable. - Continue with home medications include divalproex ER 500 mg twice a day, Keppra 500 mg 3 tablets in the morning 2 tablets at night. - Patient was seen with Dr. Peter Lang with neurology as recent as 2016, however they will be taking medical leave from practice and have suggested follow-up with Dr. wolfe, but patient prefers and Leander Mariano. # Chronic ischemic heart disease, present on admission. Stable. - NSTEMI in 2007 with 3 bare metal stents placed to high-grade left circumflex lesion, moderate disease of left anterior descending and right coronary arteries as well. - Continue home aspirin. - Lipid panel ordered and is within normal # Chronic GERD, present on admission. Stable. - Continue home omeprazole- # Chronic Depression, present on admission. stable - Continue Home medications of buspirone, Escitalopram # SSS with dual-chamber pacemaker, present on admission. Stable. - Continue home aspirin 325 daily. - Pacemaker check completed on 03/30 # Hyperlipidemia, present on admission. sable. - Continue home simvastatin 40 mg daily. # Insomnia, unspecified type and chronicity, present on admission. Stable. - Home medications include hydroxyzine. # Anxiety, unspecified type and chronicity, present on admission. Stable. - Continue home prazosin 1 mg twice a day. 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 home vs SNF in 1-2 days pending therapeutic INR. Given risk of fall ? if we should continue Coumadin or not. Will try to discuss with PCP VTE Prophylaxis: Sub-Q Enoxaparin Resuscitation Status: CPR: Attempt Resuscitation Augie Coats April 01, 2017 18:12
[2017-04-01] MEDS: Polyethylene Glycol (PEG) 17 Gm Powder PO PRN (20:41)
[2017-04-02 00:37] VITALS: BP 143/79; PULSE 79; RESP 16; O2SAT 97
[2017-04-02 04:19] VITALS: BP 159/85; PULSE 60; RESP 18; O2SAT 95
[2017-04-02 07:24] LABS: INR 3.89 ratio
[2017-04-02] MEDS: Lidocaine Topical 5% Patch TOPICAL SCH (09:19)
[2017-04-02] MEDS: levETIRAcetam 500 mg Tablet PO SCH (09:23)
[2017-04-02] MEDS: BusPIRone 15 mg Dividose Tablet PO SCH (09:24)
--- NOTE | 2017-04-02 10:42 | NUR ---
Called and left voicemail for Tim Siegel staffing coordinator at [facility] [phone] letting him know about potential discharge today. Will follow up with Tim once official discharge orders are in. Updated ASSOCIATE PROFESSOR COMPUTER SCIENCE Addendum: 04/02/17 at 1317 by AMISH MORALES CM Spoke with Tricia at [facility] and she is working on transportation for 1500. Faxed orders and placed copy in chart. Updated ASSOCIATE PROFESSOR COMPUT[employer] SCIENCE
[2017-04-02 10:50] VITALS: PULSE 60
[2017-04-02 10:51] VITALS: BP 133/75; PULSE 61; RESP 18; O2SAT 95
[2017-04-02] MEDS ORDERED: LIDO700A6 TOPICAL (12:04)
[2017-04-02] MEDS ORDERED: KLO2T PO (12:04)
[2017-04-02] MEDS ORDERED: SODI1TAB2 PO (12:04)
[2017-04-02] MEDS ORDERED: OXYC10TA8 PO (12:04)
--- NOTE | 2017-04-02 12:18 | PCM.DIMED ---
Discharge Instructions Date of Service April 02, 2017 Dates of Hospitalization March 27, 2017 at 20:23 Discharge Diagnosis Discharge Diagnosis # Acute syncope vs acute mechanical ground level fall, vs seizure. Present on admission. 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 Improved - Continue 2 g daily sodium tablets and follow with nephrology in 3 weeks (no fluid restriction needed) # Acute on chronic left shoulder pain. - Imaging suggestive of tendinitis # Chronic hypertension. Stable. # Chronic A-fib. Rate controlled. # Chronic anticoagulation with Warfarin - Subtherapeutic INR on admission.Now rapidly elevated to therapeutic range # History of seizure disorder, medically refractory partial complex and generalized seizure disorder, present on admission. Stable. # Chronic ischemic heart disease, present on admission. Stable. - NSTEMI in 2007 with 3 bare metal stents placed to high-grade left circumflex lesion, moderate disease of left anterior descending and right coronary arteries as well. # Chronic GERD, present on admission. Stable. # Chronic Depression, present on admission. stable # History of sick sinus syndrome post dual-chamber pacemaker, present on admission. Stable. - Pacemaker check completed on 03/30/17 # Hyperlipidemia, present on admission. sable. # Insomnia, unspecified type and chronicity, present on admission. Stable. # Anxiety, unspecified type and chronicity, present on admission. Stable. 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 Resume Coumadin at 3mg PO daily once INR less than 3. If INR greater than 3 on 04/03/17 continue to hold Coumadin and recheck INR the next day. Diet Discharge Diet: Low fat, Low Sodium, Heart Healthy Activity Discharge Activity: Other (as tolerated per physical therapy) Patient Instructions Follow-up plan 1. Followup with primary care provider (Dr. Capps) in 2-7 days 2. Followup with neurology as soon as possible 3. Followup with nephrology (Dr. Bebo Faust) in 2-[address] [id number] 4. Followup with your orthopedist as soon as available. Follow-up Provider: Low Capps DO Provider: AnanthapanBebo mckenna MD, Masoud April 02, 2017 12:18
[2017-04-02] MEDS ORDERED: ASPI325T32 PO (12:19)
--- NOTE | 2017-04-02 15:27 | NUR ---
Social Work-Discharge: Data: EMR Reviewed. Pt is on day 6 of hospitalization for syncope per H&P. Per morning rounds Pt is medically cleared to discharge today to SNF. PT continues to work with pt and recommending SNF. MD has placed order for SNF. Pt is accepted at [facility] SNF per pt's preference with [facility] to provide transport at 1500. SW faxed PASRR to [facility]. All updated and agreeable to plan. No further needs assessed. Assessment:Pt who would benefit from SNF Plan: Pt to discharge to [facility] SNF per PT recommendation and MD orders. PASSR faxed to SNF and packet placed at assistant front office manager. No further needs assessed. KLAUDIA Robison
--- NOTE | 2017-04-02 16:32 | NUR ---
Discharge nursing note: Patient was discharged to [facility] at 1513. Patients IV was removed intact. His telemetry was discontinued . Patient was brought to the hospital lobby by wheelchair and [facility] staff member and he was driven to the SNF in [facility] transport car. Patients informational packet and scripts were sent to [facility] with the transportation security screener to be given to the nurse taking over care of patient. Report was called to Rosalie the nurse taking over patient care at [facility].
--- NOTE | 2017-04-02 16:43 | PCM.PHAPRO ---
Progress Fall from ground level WARFARIN DOSING PER PHARMACY [facility] van RTM DFF DFF DFF Date March 30-March 31-April 01-April 02-March INR 1.18 () 1.05 1.4 2.4 3.89 INR change #VALUE! 0.35 1 1.49 Warf Dose 5mg 5 MG 5 MG HELD HELD A/P -Supratherapeutic INR. Held dose last evening but anticipated uptrend due to long half-life. Unclear of cause but suspect combination of higher doses and questionable compliance prior to admission. -Will hold the dose for this evening and recommend patient be restarted with warfarin 3 mg once INR therapeutic with close follow up. Lio Palm, PharmD Lio Palm April 02, 2017 16:43
--- NOTE | 2017-04-02 16:43 | PCM.DC.MED ---
Discharge Summary Date of Service April 02, 2017 Dates of Hospitalization Date of Hospital Admission March 27, 2017 at 20:23 Date of Discharge: April 02, 2017 Providers: Admitting Physician: Phi Ybarra MD Primary Care Physician: Low Capps DO Attending Physician: Phi Ybarra MD Diagnosis at Time of Discharge Diagnosis at Time of Discharge # Acute syncope vs acute mechanical ground level fall, vs seizure. Present on admission. 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 Improved - Continue 2 g daily sodium tablets and follow with nephrology in 3 weeks (no fluid restriction needed) # Acute on chronic left shoulder pain. - Imaging suggestive of tendinitis # Chronic hypertension. Stable. # Chronic A-fib. Rate controlled. # Chronic anticoagulation with Warfarin - Subtherapeutic INR on admission.Now rapidly elevated to therapeutic range # History of seizure disorder, medically refractory partial complex and generalized seizure disorder, present on admission. Stable. # Chronic ischemic heart disease, present on admission. Stable. - NSTEMI in 2007 with 3 bare metal stents placed to high-grade left circumflex lesion, moderate disease of left anterior descending and right coronary arteries as well. # Chronic GERD, present on admission. Stable. # Chronic Depression, present on admission. stable # History of sick sinus syndrome post dual-chamber pacemaker, present on admission. Stable. - Pacemaker check completed on 03/30/17 # Hyperlipidemia, present on admission. sable. # Insomnia, unspecified type and chronicity, present on admission. Stable. # Anxiety, unspecified type and chronicity, present on admission. Stable. 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 Nephrology (Dr. Zacarias) Procedures XRay, CTs & MRIs CT BRAIN WITHOUT CONTRAST IMPRESSION: 1. No acute intracranial abnormality. 2. Rcta-vm-tpyhiogw cerebral volume loss. Dictated by: Vince Humphries M.D. on 03/27/2017 at 17:30 CT CERVICAL SPINE WITHOUT CONTRAST IMPRESSION: 1. No fracture or subluxation. 2. Extensive multilevel degenerative changes throughout the cervical spine as described. Mild multilevel spondylolisthesis also noted. Dictated by: Vince Humphries M.D. on 03/27/2017 at 17:31 X-RAY LEFT SHOULDER, MINIMUM TWO VIEWS IMPRESSION: 1. No fracture or dislocation. 2. Moderate glenohumeral joint degeneration and mild acromioclavicular joint degeneration. 3. Suggestion of calcific tendinitis. Dictated by: Vince Humphries M.D. on 03/27/2017 at 20:29 Cardiac Echo Impression US Echo Interpretation Summary 1) Normal left ventricular thickness, size, wall motion, and systolic function (EF 60-65%). 2) Normal right ventricular size and function. There is a pacemaker lead in the right ventricle. 3) Grade 2 diastolic dysfunction (pseudonormalization) pattern, consistent with elevated filling pressures. 4) Age related calcification of the arotic and mitral valves but no significant stenosis or regurgitation are present. 5) Mildly enlargement of the ascending aorta (diameter 3.9cm). 6) Normal pulmonary artery pressures. 7) Compared to the Echo done 11/09/2009, no significant change when compared visually Reading Physician:03:25 PM Brief History As noted in h&P by Dr. Vallecillo: Mr. Jamie Roca is a very pleasant 66-year-old gentleman with a complex past medical history including A. 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 He lives alone and his story has fluctuated slightly. He reports that he fell and hit his head on a bolt which made such a loud noise that his neighbor heard and call their other friend and made her way into the house. He also reported that he had no recollection of the events preceding the fall or the fall itself, and per ER notes that he was attempting to stand and fell backwards. He reports chronic left shoulder and left upper quadrant abdominal pain that is reported as 10 out of 10. The patient lives alone and has [facility] to help with medications and he reports compliance with long list of medications. He ambulates with walker and cane. He denies fever, chills, dizziness, change in vision, headache, change in appetite, nausea, vomiting, chest pain, shortness of breath, dysuria, hematochezia, hematemesis, hematuria, change in stool habits. In the emergency department on admission patient's temperature is 36.4, pulse 60 , respiratory rate 19, blood pressure 131/76, 95% on room air. White count 7.7, RBCs 4.28, hemoglobin 13.8, RDW 11.7, platelets 203, neutrophils 69.3, lymphs 15.0 monocytes 15.4, sodium 126, potassium 4.1, chloride 88, CO2 23, BUN/creatinine 13, creatinine 0.44 (with baseline declining since 2009 at 0.9 to 0.6 to present). Glucose 95, calcium 9.6, mag 2.0, AST ALT 44/17, alkaline phosphatase 66, troponin negative, albumin 4.0. PT /INR 12.7/1.18. On CT head and neck negative for acute processes. Shoulder x-ray without fractures. Hospital Course # Acute syncope vs acute mechanical ground level fall, vs seizure. Present on admission. - Differential diagnosis includes : Neurologic versus cardiogenic syncope. Recurrent medically refractory generalized seizure disorder, Patient lives alone has many medications and is suffering from effects of childhood polio with severe left-sided weakness and debility. He has previous falls at home - Orthostatic blood pressures negative - CT head and C-spine negative. 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 Improved - Appreciate nephrology consult. Will followup with recs - Continue fluid restriction - Continue 2 g daily sodium tablets and follow with nephrology in 3 weeks (no fluid restriction needed for discharge per earlier notes) # Acute on chronic left shoulder pain. - Imaging suggestive of tendinitis - Ibuprofen x 2 days given - Continue with pain control and supportive care as needed. - Says has been following with his orthopedist as outpatient # Hypertension, not present on admission. Active. - Continue with Lisinopril - Continue atenolol # Chronic A-fib. Rate controlled. - Continue with Atenolol # Chronic anticoagulation with Warfarin - Subtherapeutic INR, present admission. Now rapidly elevated to therapeutic range - Continue Coumadin (dose per pharmacy) - Follow daily INR # History of seizure disorder, medically refractory partial complex and generalized seizure disorder, present on admission. Stable. - Continue with home medications include divalproex ER 500 mg twice a day, Keppra 500 mg 3 tablets in the morning 2 tablets at night. - Patient was seen with Dr. Peter Lang with neurology as recent as 2016, however they will be taking medical leave from practice and have suggested follow-up with Dr. wolfe, but patient prefers and Leander Mariano. # Chronic ischemic heart disease, present on admission. Stable. - NSTEMI in 2007 with 3 bare metal stents placed to high-grade left circumflex lesion, moderate disease of left anterior descending and right coronary arteries as well. - Continue home aspirin. - Lipid panel ordered and is within normal # Chronic GERD, present on admission. Stable. - Continue home omeprazole- # Chronic Depression, present on admission. stable - Continue Home medications of buspirone, Escitalopram # SSS with dual-chamber pacemaker, present on admission. Stable. - Continue home aspirin 325 daily. - Pacemaker check completed on 03/30 # Hyperlipidemia, present on admission. sable. - Continue home simvastatin 40 mg daily. # Insomnia, unspecified type and chronicity, present on admission. Stable. - Home medications include hydroxyzine. # Anxiety, unspecified type and chronicity, present on admission. Stable. - Continue home prazosin 1 mg twice a day. 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: - Continue with home meds Exam Vital Signs (Last) Date Time Temp Pulse Resp B/P Pulse Ox O2 Delivery O2 Flow Rate FiO2 04/02/17 12:32 Room Air 04/02/17 10:51 36.7 61 18 133/75 95 Exam General: Alert, Cooperative Head: Normal Eyes: Scleral Anicteric Nose: Mucous Membr Moist/[place] Mouth: Mucous Membr Moist/[place] Neck: Supple Chest & Lungs: Chest Wall Normal, Clear to auscultation bilat Cardiovascular: Regular Rate/Rhythm Pulses: NL carotid, radial, femoral, DP, PT Abdomen: Non-tender, Non-distended, Normoactive bowel tones, Soft Extremities: No cyanosis/clubbing/edema bilat Neurological: Cranial Nerves 2-12 Intact, Other (Weaker left upper extremity and left lower extremity. L LE< R LE. ) Test 03/27/17 18:05 03/27/17 18:09 03/27/17 20:57 03/28/17 04:50 Magnesium Level 2.0mg/dL (1.6-2.6) Troponin T < 0.010ug/L (0.0-0.011) Triglycerides Level 53mg/dL (0-149) Cholesterol Level 168mg/dL (100-199) LDL Cholesterol, Calculated 86.400mg/dL (0-99) VLDL Cholesterol 10.600mg/dL HDL Cholesterol 71mg/dL (>39) Cholesterol/HDL Ratio 2.37 (0.0-4.4) Osmolality 270 (275-300) Urine Color Yellow (YELLOW) Urine Appearance Clear (CLEAR,HAZY) Urine pH 7.0 (5.0-8.0) Urine Specific [place] 1.020 (1.003-1.035) Urine Protein Negativemg/dL (NEG,TRACE) Urine Glucose (UA) Negativemg/dL (NEGATIVE) Urine Ketones Tracemg/dL (NEGATIVE) Urine Occult Blood Small (NEGATIVE) Urine Nitrite Negative (NEGATIVE) Urine Bilirubin Negative (NEGATIVE) Urine Urobilinogen 2.0mg/dL (NORMAL) Urine Leukocyte Esterase Negative (NEGATIVE) Urine RBC 0-2/hpf (0-2) Urine WBC 0-5/hpf (0-5) Urine Epithelial Cells Few/hpf (NONE-MOD) Urine Crystals None seen (NONE SEEN) Urine Bacteria Few/hpf (NONE-FEW) Urine Hyaline Casts None/lpf (NONE) Urine Granular Casts None seen (NONE SEEN) Urine Waxy Casts None seen (NONE SEEN) Urine Red Blood Cell Casts None seen (NONE SEEN) Urine White Blood Cell Casts None seen (NONE SEEN) Urine Mucus None seen (None Seen) Urine Trichomonas None seen (NONE SEEN) Urine Yeast None (NONE SEEN) Urinalysis Comment None Urine Culture Reflexed Not indicated Urine Osmolality 346mOs/kH2O (250-1200) Urine Random Sodium 71mEq/L Hold Urine Received (Received) Test 03/28/17 05:55 03/29/17 06:05 04/01/17 06:55 04/02/17 06:25 Neutrophils (%) (Auto) 62.0% (40-74) Lymphocytes (%) (Auto) 21.3% (14-46) Monocytes (%) (Auto) 16.0% (4-12) Eosinophils (%) (Auto) 0.5% (0-5) Basophils (%) (Auto) 0% (0-3) Uric Acid 3.7mg/dL (2.6-7.2) Total Bilirubin 0.5mg/dL (0.0-1.2) Aspartate Amino Transf (AST/SGOT) 35U/L (0-50) Alanine Aminotransferase (ALT/SGPT) 15U/L (0-44) Alkaline Phosphatase 54U/L (25-160) Total Protein 6.1g/dL (6.4-8.4) Albumin 3.5g/dL (3.4-5.0) Free Valproic Acid Level 24.0ug/mL (6.0-22.0) Total Valproic Acid 70ug/mL (50-100) Levetiracetam (Keppra) Level 20.3ug/mL (10.0-40.0) White Blood Count 5.5th/mm3 (3.8-10.1) Red Blood Count 3.83mil/mm3 (4.40-5.80) Hemoglobin 12.2g/dL (13.8-17.2) Hematocrit 35.2% (41.0-50.0) Mean Corpuscular Volume 91.9fL (81-100) Mean Corpuscular Hemoglobin 31.9pg (27.0-35.0) Mean Corpuscular Hemoglobin Concent 34.7% (32.0-37.0) Red Cell Distribution Width 12.0% (12.3-15.4) Platelet Count 220bil/L (150-400) Sodium Level 133mEq/L (134-144) Potassium Level 4.5mEq/L (3.5-5.2) Chloride Level 96mEq/L (97-108) Carbon Dioxide Level 26mmol/L (18-29) Blood Urea Nitrogen 16mg/dL (8-27) Creatinine 0.54mg/dL (0.76-1.27) Estimat Glomerular Filtration Rate 163mL/min (>59) Glucose Level 108mg/dL (60-99) Calcium Level 9.2mg/dL (8.5-10.1) Prothrombin Time 42.8sec (8.1-12.5) Prothromb Time International Ratio 3.89ratio Discharge Medications Discharge Medications Aspirin (Aspirin) 325 Mg Tablet 325 MG PO DAILY Prescribed by: TEMO PARKER MD Atenolol (Atenolol) 50 Mg Tablet 50 MG PO DAILY (Reported) Buspirone (Buspirone) 15 Mg Tablet 15 MG PO BID (Reported) Cholecalciferol (Vitamin D3) (Vitamin D3) 1,000 Unit Tab.chew 5,000 UNIT PO DAILY (Reported) Clonazepam (Clonazepam) 2 Mg Tablet 2 MG PO HS Prescribed by: TEMO PARKER MD Divalproex ER (Divalproex ER) 500 Mg Tab.er.24h 500 MG PO BID (Reported) Escitalopram Oxalate (Escitalopram Oxalate) 10 Mg Tablet 10 MG PO DAILY ( Reported) Gabapentin (Gabapentin) 300 Mg Capsule 900 MG PO TID (Reported) Hydroxyzine Pamoate (HydrOXYzine Pamoate) 25 Mg Capsule 25 MG PO BID (Reported) Levetiracetam (Levetiracetam) 500 Mg Tablet 1,500 MG PO QAM (Reported) Levetiracetam (Keppra) 500 Mg Tablet 1,000 MG PO QPM (Reported) Lidocaine (Lidoderm) 700 Mg Adh..patch 1 PATCH TOPICAL DAILY Prescribed by: TEMO PARKER MD Lisinopril (Lisinopril) 20 Mg Tablet 20 MG PO BID (Reported) Omeprazole (Omeprazole) 20 Mg Capsule.dr 20 MG PO DAILY (Reported) Polyethylene Glycol 3350 (Miralax) 17 Gm Powd.pack 17 GM PO DAILY (Reported) Prazosin (Prazosin) 1 Mg Capsule 1 MG PO BID (Reported) Simvastatin (Simvastatin) 40 Mg Tablet 40 MG PO HS (Reported) Sodium Chloride (Sodium Chloride) 1 Gm Tablet 2 GM PO DAILY Prescribed by: TEMO PARKER MD Warfarin Sodium (Warfarin Sodium) 1 Mg Tablet 3 MG PO DAILY (Reported) As needed Acetaminophen (Acetaminophen) 500 Mg Tablet 500 MG PO Q6H PRN PRN For Pain ( Reported) Bisacodyl (Dulcolax Rectal) 10 Mg Supp.rect 10 MG RC DAILY PRN PRN For Constipation (Reported) Nitroglycerin SL (Nitrostat) 0.4 Mg Tab.subl 0.4 MG SL Q5MIN PRN PRN ANGINA ( Reported) oxyCODONE (oxyCODONE) 10 Mg Tablet 10 MG PO QID PRN PRN For Pain Prescribed by: TEMO PARKER MD Additional med instructions Hold Coumadin on 04/02/17 and recheck INR on 04/03/17. Resume Coumadin at 3mg PO daily once INR less than 3. If INR greater than 3 on 04/03/17 continue to hold Coumadin and recheck INR the next day. Followup Plan Disposition: [facility] Follow-up plan 1. Followup with primary care provider (Dr. Capps) in 2-7 days 2. Followup with neurology as soon as possible 3. Followup with nephrology (Dr. Bebo Faust) in 2-[address] [id number] 4. Followup with your orthopedist as soon as available. Discharge Diet: Low fat, Low Sodium, Heart Healthy Discharge Activity: Other (as tolerated per physical therapy) Follow-up Provider: Low Capps DO Provider: Bebo Faust MD Time spent 35 min copies to: Bebo Faust MD; Low Capps Masoud April 02, 2017 16:43
== END 2017-04-02 16:27 | DRG 644 ==
LOC: EDBD 16:49 → SED 16:49 → EDUNIT# 16:49 → OBSVTOIN 20:23 → MPC 20:23
PROVIDERS: ADMIT Hospitalist; ATTEND Hospitalist
DX: E22.2 Syndrome of inappropriate secretion of antidiuretic hormone (principal); G81.94 Hemiplegia, unspecified affecting left nondominant side; I48.2 Chronic atrial fibrillation; R55 Syncope and collapse; I10 Essential (primary) hypertension; S00.83XA Contusion of other part of head, initial encounter; G40.909 Epilepsy, unspecified, not intractable, without status epilepticus; E78.5 Hyperlipidemia, unspecified; W01.0XXA Fall on same level from slipping, tripping and stumbling without subsequent striking against object, initial encounter; M62.562 Muscle wasting and atrophy, not elsewhere classified, left lower leg; M48.06 Spinal stenosis, lumbar region; M77.8 Other enthesopathies, not elsewhere classified; Z91.14 Patient's other noncompliance with medication regimen; B91 Sequelae of poliomyelitis; Z79.82 Long term (current) use of aspirin; Z95.0 Presence of cardiac pacemaker; Z79.01 Long term (current) use of anticoagulants; Z87.891 Personal history of nicotine dependence; Y92.009 Unspecified place in unspecified non-institutional (private) residence as the place of occurrence of the external cause; Z95.5 Presence of coronary angioplasty implant and graft